=== PATIENT | male | born 1960 | race African-American/Black ===

== ENCOUNTER 2021-07-16 13:21 | Inpatient (IN) | payer BC, SELFPAY ==
[2021-07-16] VITALS (29 sets, daily range): BP systolic 161–234; BP diastolic 75–122; PULSE 40–78; RESP 11–27; TEMP 36.7–37.2; O2SAT 91–100; BMI 28.0
--- NOTE | 2021-07-16 | ECHO_ITS ---
Patient Info Name: Saul Hernandez Age: 61 years : 1960 Gender: Male Ht: 66 in Wt: 162 lbs BSA: 1.86 m2 HR: 69 bpm BP: 161 / 92 mmHg Heart Rhythm: Sinus Rhythm Technical Quality: Fair Exam Date: 07/16/2021 3:39 PM Exam Location: [facility] Patient Status: Emergency Admit Date: 07/16/2021 Staff Ordering Physician: Elham Helton MD Inspector Automatic Typewriter: Rosalind Martínez RDCS Attending Provider: Elham Helton MD Referring Physician: Danie MAYA; Exam Type: CA echo doppler color flow Study Info Indications - elevated troponin, elevated BNP Complete two-dimensional, color flow and Doppler transthoracic echocardiogram is performed. Summary 1. Complete two-dimensional, color flow and Doppler transthoracic echocardiogram is performed. 2. There is severe asymmetric septal increased left ventricular wall thickness. Repeat limited study to evaluate for LVOT obstruction and concern for hypertrophic cardiomyopathy. Consider cardiac MRI if clinically indicated. 3. Mild right ventricular hypertrophy. 4. Left ventricular chamber dimension is normal. 5. Left ventricular systolic function is hyperdynamic, estimated at >70%. 6. The left ventricular diastolic function is grade II diastolic dysfunction. 7. There is mild mitral valve regurgitation. 8. There is trace tricuspid valve regurgitation. 9. Mild pulmonary hypertension, estimated pulmonary arterial systolic pressure is 37 mmHg. Left Ventricle There is severe asymmetric septal increased left ventricular wall thickness. Repeat limited study to evaluate for LVOT obstruction and concern for hypertrophic cardiomyopathy. Consider cardiac MRI if clinically indicated. Left ventricular chamber dimension is normal. Left ventricular systolic function is hyperdynamic, estimated at >70%. The left ventricular diastolic function is grade II diastolic dysfunction. Right Ventricle Mild right ventricular hypertrophy. Right ventricular chamber dimension is normal. Right ventricular systolic function is normal. Left Atria Left atrial chamber dimension is normal. Right Atria Right atrial chamber dimension is mildly enlarged. Aortic Valve The aortic valve is trileaflet. There is no aortic valve stenosis. There is no aortic valve regurgitation. Pulmonic Valve The pulmonic valve is not well visualized. There is trace pulmonic regurgitation. Mitral Valve The mitral valve has normal leaflets. There is mild mitral valve regurgitation. Tricuspid Valve The tricuspid valve leaflets are normal. There is trace tricuspid valve regurgitation. Mild pulmonary hypertension, estimated pulmonary arterial systolic pressure is 37 mmHg. Pericardium/Pleural The pericardium appears normal. There is trivial pericardial effusion. Inferior Vena Cava Normal inferior vena cava with >50% collapse upon inspiration consistent with normal right atrial pressure, 5 mmHg. Aorta The aortic root size at the sinus of Valsalva is normal. Left Ventricular Outflow Tract Name Value Normal LVOT 2D LVOT Diameter 2.0 cm LVOT Doppler LVOT Peak Gradient 8
--- NOTE | ~2021-07-16 | US_ITS ---
EXAMINATION: US renal BI DATE: 07/16/2021 14:26 INDICATION: Hypertensive crisis. TECHNIQUE: Multiple ultrasound grayscale images of the kidneys were obtained. COMPARISON: None. FINDINGS: The right kidney measures 9.0 x 4.3 x 4.6 cm. The left kidney measures 9.2 x 4.4 x 4.3 cm. The kidney s demonstrate normal parenchymal echogenicity. There is no hydronephrosis. The bladder is normal. IMPRESSION: 1. Normal kidneys. No hydronephrosis. Reviewed, dictated and finalized at location A. OR CARE SPECIALIST
--- NOTE | ~2021-07-16 | XR_ITS ---
EXAMINATION: XR chest 2V DATE: 07/16/2021 14:24 INDICATION: Hypertension. TECHNIQUE: Frontal and lateral views of the chest were obtained on 3 radiographs. COMPARISON: None. FINDINGS: There are airspace opacities in the upper lobes, right worse than left. No pleural effusion or pneumothorax. The heart size is normal. IMPRESSION: 1. Airspace opacities in the upper lobes, right worse than left, consistent with pneumonia versus chr onic lung disease. Reviewed, dictated and finalized at location A. F BUSINESS DEVELOPMENT OFFICER IMPRESSION: 1. Airspace opacities in the upper lobes, right worse than left, consistent wit h pneumonia versus chronic lung disease.
--- NOTE | ~2021-07-16 | US_ITS ---
EXAMINATION: US retroperitoneal duplex ltd DATE: 07/24/2021 08:52 INDICATION: hypertension TECHNIQUE: Multiple grayscale, color Doppler, and pulsed Doppler images of the kidneys and renal grisel julio cesar were obtained. COMPARISON: None. FINDINGS: The aorta peak systolic velocity is 139 cm/s. The right renal artery peak systolic velocity is 90 cm/ s in the proximal segment, 136 cm/s in the mid segment, and 96 cm/s in the distal segment. The left r enal artery peak systolic velocity is 62 cm/s in the proximal segment, 70 cm/s in the mid segment, an d 99 cm/s in the distal segment. IMPRESSION: 1. No Doppler evidence of renal artery stenosis. Reviewed, dictated and finalized at location A. CHANGER
--- NOTE | ~2021-07-16 | CT_ITS ---
EXAMINATION: CT brain wo con DATE: 07/16/2021 14:29 INDICATION: Headache, hypertension TECHNIQUE: Computed tomography (CT) of the head was performed without intravenous contrast. The mA wa s adjusted according to patient size. Iterative reconstruction technique was employed. Exam dose: 60 5.33 mGy-cm total exam DLP. COMPARISON: None FINDINGS: Chronic left inferomedial cerebellar hemispheric infarct. There is nonspecific diminished attenuation of the periventricular and subcortical cerebral white mat ter, possibly due to chronic small vessel ischemic changes. No intracranial mass lesion or hemorrhage or cerebrovascular accident is noted. No midline shift or m ass effect. Normal ventricular size. No subdural or epidural hematoma. There is prominent sclerosis at both frontal sinuses which may be developmental or possibly sequela o f chronic infection. This appears benign and likely inactive. If there is clinical concern for any ac tive process at this site, consider radionuclide bone scan. IMPRESSION: Old left cerebellar hemispheric infarct Chronic small vessel ischemic changes of the cerebral white matter Sclerosis at the frontal sinuses, likely benign and chronic Reviewed, dictated and finalized at Location A. Reviewed, dictated and finalized at location B. AT ANALYST
--- NOTE | ~2021-07-16 | XR_ITS ---
EXAMINATION: XR chest 2V DATE: 07/23/2021 13:35 INDICATION: Abnormal chest radiograph TECHNIQUE: PA and lateral views of the chest were obtained. COMPARISON: Chest radiograph dated 07/16/2021 FINDINGS: Persistent pleural parenchymal scarring and coarse primarily reticular opacities at the bilateral upp er lung zones which could represent pneumonia or chronic lung disease. There is been some improvement in prior the lateral perihilar opacities which may represent mild pulmonary edema or pneumonia. Ther e are few scattered small calcified pulmonary nodules consistent with old granulomatous disease. No p leural effusion or pneumothorax. The cardiomediastinal silhouette is normal. Visualized bones and sof t tissues are unremarkable. IMPRESSION: 1. Improvement of prior bilateral perihilar opacities which may represent pulmonary edema or pneumoni a. 2. Pleural-parenchymal scarring with unchanged primarily reticular opacities in the bilateral upper l ta zones which could represent pneumonia or chronic lung disease. Reviewed, dictated and finalized at location A. EDITOR IMPRESSION: 1. Improvement of prior bilateral perihilar opacities which may represent pulmo nary edema or pneumonia. 2. Pleural-parenchymal scarring with unchanged primarily reticular opacities in the bilateral upper lung zones which could represent pneumonia or chronic lung disease.
--- NOTE | 2021-07-16 13:34 | ED.RECABL ---
HPI - Recheck/Abnormal Lab/Rx General Chief Complaint: Recheck/Abnormal Lab/Rx Stated Complaint: high blood pressure Time Seen by Provider: 07/16/21 13:34 Source: patient and family Mode of arrival: ambulatory Limitations: no limitations History of Present Illness HPI narrative: Patient is a 61-year-old male with a history of hypertension, chronic kidney disease, presenting to the emergency department for evaluation of persistently elevated blood pressure. Patient states that he was recently hospitalized at [facility], and left AGAINST MEDICAL ADVICE this morning because his blood pressure has been elevated despite numerous medications he received well being observed there. Patient states that a week ago his blood pressure was elevated at a outpatient nephrology appointment, patient systolics greater than 200s, patient had always been taking his lisinopril 20 mg when his videotape operator ordered him to take amlodipine 10 mg. Because of his very elevated blood pressure, headache, patient was referred to [facility] by his videotape operator. Patient went to [facility] and ultimately was discharged home. Patient has been monitoring his blood pressure for a week when again his systolics were greater than 200, and patient again went to [facility] last night. Patient was given nitroglycerin, hydralazine, amlodipine in the ER, states that it would improve his blood pressure slightly before it would rebound and increase. Patient states he had a slight headache this morning, and he decided to leave AGAINST MEDICAL ADVICE but none of their interventions were working. Patient presents here with mild headache. Denies vision changes, nausea or vomiting. No focal weakness or numbness. His initial blood pressure was check-in was 160/92, bedside systolics 190s to 200s. Patient does not have a salesperson burial needs. Patient states he has an irregular heartbeat. He denies any chest pain. Related Data Home Medications Medication Instructions Recorded Confirmed amlodipine 10 mg PO DAILY 07/16/21 lisinopril 20 mg PO DAILY 07/16/21 Allergies Allergy/AdvReac Type Severity Reaction Status Date / Time No Known Allergies Allergy Verified 07/16/21 13:35 Review of Systems Review of Systems: CONSTITUTIONAL: Denies fever, chills, or sweats. EYES: Denies visual changes, redness, or discharge. ENT: Denies rhinorrhea, congestion, sore throat, or otalgia. CARDIOVASCULAR: Denies chest pain, palpitations, or edema. RESPIRATORY: Denies cough or dyspnea. GASTROINTESTINAL: Denies abdominal pain, nausea, vomiting, or diarrhea. GENITOURINARY: Denies dysuria or hematuria. SKIN: Denies rash or itching. MUSCULOSKELETAL: Denies back pain, joint pain, or myalgia. NEUROLOGIC: Reports mild headache without numbness, or weakness. [facility] Social History Social History (Updated 07/16/21 @ 13:54 by Elham Helton MD) Smoking status: Never smoker Alcohol intake: never Substance use: never Gender identity (if verbalized by the patient): Female Exam Narrative: GENERAL: Awake, alert, conversant HEAD: Normocephalic, atraumatic. EYES: PERRLA and EOMI. ENT: Nares clear, no rhinorrhea or epistaxis. Mucous membranes moist. NECK: Supple. CHEST: No respiratory distress, breathing even and non labored HEART: Irregular rhythm, holosystolic murmur ABDOMEN:Non distended, non tender EXTREMITIES: Normal range of motion. No edema. SKIN: Warm, dry, no rash. NEURO:No focal deficits. Alert and oriented x3. Narrow base, steady gait, normal extremity strength bilateral upper and lower extremities. Course Vital Signs Vital signs: Vital Signs Temperature 37.2 C 07/16/21 13:25 Pulse Rate 40 L 07/16/21 13:25 Respiratory Rate 18 07/16/21 13:25 Blood Pressure 161/92 H 07/16/21 13:25 Pulse Oximetry 100 07/16/21 13:25 Temperature 37.2 C 07/16/21 13:25 Pulse Rate 40 L 07/16/21 13:25 Respiratory Rate 18 07/16/21 13:25 Blood Pressure 161/92 H 07/16/21 1
--- NOTE | 2021-07-16 13:50 | ECG_ITS ---
Measurements Intervals [place] Rate: 70 P: 46 MT: 177 QRS: -24 QRSD: 95 T: 31 QT: 456 QTc: 495 Interpretive Statements SINUS RHYTHM SUPRAVENTRICULAR BIGEMINY INCOMPLETE RIGHT BUNDLE BRANCH BLOCK DELAYED PRECORDIAL R/S TRANSITION BORDERLINE ST ABNORMALITY- INF/LAT LEADS ABNORMAL ECG Electronically Signed On 07-16-2021 15:44:36 SHERIFF'S DETECTIVE by Oswald Leonard D.O.
[2021-07-16] MEDS: NITROGLYCERIN OINTMENT 1 INCH DOSE TRANSDERM (13:57)
[2021-07-16] MEDS: hydrALAZINE HCL 20 MG/ML VIAL IV PUSH ×2 (13:57→15:39)
[2021-07-16 14:06] LABS: Basophils Percent Auto 0.3 % (0.2-1.2); Eosinophils Absolute Auto 0.1 K/mm3 (0-0.3); Eosinophils Percent Auto 0.9 % (0-4.4); Hemoglobin 14.6 g/dL (14.0-18.0); Immature Granulocyte Absolute 0.03 K/mm3 (0.00-0.031); Immature Granulocyte Percent A 0.3 % (0-0.5); Lymphocytes Absolute Auto 1.24 K/mm3 (0.9-3.2); Lymphocytes Percent Auto 11.8 % (18.3-44.2); Mean Corpuscular Hemoglobin 30.7 pg (26-34); Mean Corpuscular Volume 90.3 fl (80-100); Mean Platelet Volume 11.7 fl (7.4-10.4); Monocytes Absolute Auto 0.9 K/mm3 (0.1-0.6); Monocytes Percent Auto 8.5 % (2.6-8.5); Neutrophils Absolute Auto 8.3 K/mm3 (1.3-6.7); Neutrophils Percent Auto 78.2 % (45.5-73.1); Platelet Count Result 282 k/mm3 (150-375); Red Blood Count 4.76 M/mm3 (4.6-6.20); Red Cell Distribution Width 13.5 % (11.5-14.5); White Blood Count 10.5 K/mm3 (4.5-10.0)
[2021-07-16 14:12] LABS: INR 1.1; Prothrombin Time 13.4 Seconds (11.1-14.7)
[2021-07-16 14:13] LABS: Partial Thromboplastin Time 29.2 SECONDS (22.3-36.8)
[2021-07-16 14:20] LABS: Alanine Aminotransferase 13 U/L (4-50); Albumin Level 4.1 g/dL (3.5-5.1); Alkaline Phosphatase 94 U/L (38-126); Anion Gap 9 mmol/L (8-16); Aspartate Amino Transferase 24 U/L (17-59); Bilirubin,Total 1.2 mg/dL (0.2-1.3); Blood Urea Nitrogen 22 mg/dL (9-20); Calcium 9.5 mg/dL (8.4-10.2); Carbon Dioxide 24 mmol/L (22-30); Chloride 109 mmol/L (98-107); Estimated CRCL calculation 37 ml/min; Estimated Glomerular Filt Rate 50; Glucose 99 mg/dL (65-110); Potassium 3.7 mmol/L (3.4-5.0); Sodium 142 mmol/L (137-145)
[2021-07-16 14:29] LABS: NT Pro B Type Natriuretic Pept 2680 pg/mL (5-100)
[2021-07-16 14:40] LABS: Troponin I 0.138 ng/mL (0.000-0.034)
[2021-07-16] MEDS: oxyCODONE/ACETAMINOPHEN (*CRX) 5-325 MG TABLET 1 TABLET PO (15:50)
[2021-07-16 16:13] LABS: SARS-CoV-2 RNA PCR Negative
--- NOTE | 2021-07-16 16:36 | PC.NURSE ---
dinner ordered at this time
[2021-07-16 18:02] LABS: Add Urine Microscopic? YES; Appearance Urine Clear (Clear); Bilirubin Urine Negative (Negative); Blood Urine Negative (Negative); Color Urine Straw (Yellow); Glucose Urine UA Negative (Negative); Ketones Urine Trace mg/dL (Negative); Leukocyte Esterase Ur Negative LEU/UL (Negative); Nitrate Urine Negative (Negative); Protein Urine 2+ mg/dL (Negative); RBC Urine 0-2 /hpf (0-2); Specific Grav Ur 1.015 (1.001-1.035); Urobilinogen Urine Negative mg/dL (<2.0); WBC Urine 0-3 /hpf
--- NOTE | 2021-07-16 18:03 | ADMGEN ---
This patient, Saul Hernandez, was admitted to [facility]. Patient/family oriented to hospital policies and general routines including ID bracelet, bed and alarms, visiting hours, pain management, procedures, bathroom and other care routines, personal items, smoking policy, room service/diet, and visiting hours. Information on how to activate the Rapid Response Team has been discussed. Patient/Family are encouraged to report perceived risks to care and to ask questions if they do not understand what they are told or what they should do.
[2021-07-16 20:13] LABS: Troponin I 0.182 ng/mL (0.000-0.034)
[2021-07-16 22:42] LABS: Troponin I 0.232 ng/mL (0.000-0.034)
[2021-07-17] VITALS (24 sets, daily range): BP systolic 126–229; BP diastolic 59–128; PULSE 46–153; RESP 17–22; TEMP 36.3–36.8; O2SAT 95–99
--- NOTE | 2021-07-17 | ECHO_ITS ---
Patient Info Name: Saul Hernandez Age: 61 years : 1960 Gender: Male Ht: 66 in Wt: 174 lbs BSA: 1.94 m2 HR: 78 bpm BP: 180 / 122 mmHg Heart Rhythm: Sinus Rhythm Technical Quality: Good Exam Date: 07/17/2021 9:08 AM Exam Location: [facility] Exam Room: [facility] Patient Status: Outpatient Admit Date: 07/16/2021 Staff Ordering Physician: Malissa Barney NP Explosive Technician: Misty Fang RDCS Attending Provider: Sheridan Tolbert MD Referring Physician: Ector JUAREZ; Exam Type: CA echo limited w contrast Study Info Indications - EVAL FOR HOCM Limited two-dimensional transthoracic echocardiogram is performed with contrast. Contrast/Agitated Saline Contrast/Ag. Saline: Definity Amount: 2.00 ml Existing IV Access: Yes IV Access Condition: patent with no signs of infiltration Summary 1. Left ventricular chamber dimension is normal. 2. Left ventricular systolic function is hyperdynamic, estimated at >70%. Moderate to severe concentric left ventricular hypertrophy more prominent in the septum. No LVOT obstruction with and without Valsalva. 3. Limited study with limited views with definity echo contrast enhancement. Left Ventricle Left ventricular chamber dimension is normal. Left ventricular systolic function is hyperdynamic, estimated at >70%. Moderate to severe concentric left ventricular hypertrophy more prominent in the septum. No LVOT obstruction with and without Valsalva. Limited study with limited views with definity echo contrast enhancement. Report Signatures
--- NOTE | 2021-07-17 00:20 | PM.IMHP ---
H&P: HPI History of Present Illness Date/Time: 07/16/21 2300 this is a 61-year-old male patient with a past medical history of hypertension and chronic kidney disease. The patient stated that he had only been on lisinopril but then Norvasc was added as well. The patient stated that he was recently admitted to [facility] but then left against medical advice this morning because he felt that his blood pressure was not coming down after multiple medications for tried. Patient also sees Nephrology as well who has been monitoring his renal function. The patient stated for over week his systolic blood pressures have been over 200s. Patient was given nitroglycerin, hydralazine, amlodipine and ER. The patient's blood pressure would only decrease mildly and then rebound an increase again. Patient had no fever chills or nausea vomiting. Patient's blood pressure is down to 179/80. The patient was also given a Percocet. BUN 22 creatinine 1.7. Troponin 0.138, 0.182, and 0.232. Patient was admitted to observation status on the date of service 07/16/2021. Chief Complaint: Elevated blood pressure Review of Systems Review of Systems: All systems reviewed & are unremarkable except as noted in HPI and below Constitutional: Constitutional: Reports as per HPI and Reports no additional constitutional complaints Eyes: Eyes: Reports as per HPI and Reports no additional eye complaints ENT: Reports system reviewed and no additional complaints, except as documented and Reports Normal hearing present Cardiovascular: Cardiovascular: Reports no additional cardiovascular complaints Respiratory: Respiratory: Reports no additional respiratory complaints and Reports no additional respiratory complaints Gastrointestinal: Gastrointestinal: Reports as per HPI and Reports no additional gastrointestinal complaints Musculoskeletal: Musculoskeletal: Reports no additional musculoskeletal complaints Integumentary/Breasts: Skin/Breast: Reports system reviewed and no additional complaints, except as docu and Reports as per HPI Neurologic: Reports system reviewed and no additional complaints, except as documented, Reports as per HPI and Reports Normal hearing present Psychiatric: Psychiatric: Reports no additional psychiatric complaints and Reports as per HPI Endocrine: Endocrine: Reports no additional endocrine complaints Hematologic/Lymphatic: Hematologic/Lymphatic: Reports no additional hematologic/lymphatic complaints Allergic/Immunologic: Allergic/Immunologic: Reports no additional allergic/immunologic complaints [facility] Past Medical History Medical History (Updated 07/17/21 @ 00:46 by Malissa Barney NP) Chronic kidney disease Chronic kidney disease Elevated troponin History of CVA (cerebrovascular accident) As per head CT Malignant hypertension Surgical History Surgical History (Updated 07/17/21 @ 00:42 by Malissa Barney NP) History of appendectomy History of tonsillectomy Family History Family History Mother CHF (congestive heart failure) Hypertension Sibling Diabetes mellitus Hypertension Father Hypertension Social History Social History (Updated 07/17/21 @ 00:43 by Malissa Barney NP) Social History: The patient has a significant other. He had 5 children and 1 in a car accident. The patient is currently unemployed. He is a former smoker. He denies any alcohol but occasionally uses marijuana. He does not have a durable power attorney lawyer for healthcare. Code status full code Smoking packs per day: 0.5 Smoking cigarettes per day: 10.0 Smoking status: Former smoker Tobacco type: cigarettes Smoking end date: 06/01/00 Alcohol intake: current Drinks per week: 8 Substance use: never Substance use type: marijuana Gender identity (if verbalized by the patient): Female Spiritual care concerns: No Meds Home Medications and Allergi
[2021-07-17] MEDS: hydrALAZINE HCL 20 MG/ML VIAL 10 MG IV PUSH (03:07)
[2021-07-17] MEDS: METOPROLOL TARTRATE 25 MG TABLET PO (04:28)
[2021-07-17] MEDS: METOPROLOL TARTRATE INJ 5 MG/5 ML VIAL IV PUSH (04:52)
[2021-07-17] MEDS: amLODIPine BESYLATE 5 MG TABLET 10 MG PO (05:33)
[2021-07-17 06:19] LABS: Basophils Percent Auto 0.1 % (0.2-1.2); Eosinophils Percent Auto 0.2 % (0-4.4); Hematocrit 40.1 % (42.0-52.0); Hemoglobin 13.6 g/dL (14.0-18.0); Immature Granulocyte Absolute 0.07 K/mm3 (0.00-0.031); Immature Granulocyte Percent A 0.5 % (0-0.5); Lymphocytes Absolute Auto 0.58 K/mm3 (0.9-3.2); Lymphocytes Percent Auto 3.8 % (18.3-44.2); Mean Corpuscular HGB Conc 33.9 g/dl (32-36); Mean Corpuscular Hemoglobin 30.2 pg (26-34); Mean Corpuscular Volume 88.9 fl (80-100); Mean Platelet Volume 11.7 fl (7.4-10.4); Monocytes Absolute Auto 0.9 K/mm3 (0.1-0.6); Neutrophils Absolute Auto 13.6 K/mm3 (1.3-6.7); Neutrophils Percent Auto 89.4 % (45.5-73.1); Platelet Count Result 268 k/mm3 (150-375); Red Blood Count 4.51 M/mm3 (4.6-6.20); Red Cell Distribution Width 13.4 % (11.5-14.5); White Blood Count 15.3 K/mm3 (4.5-10.0)
[2021-07-17 06:44] LABS: Alanine Aminotransferase 12 U/L (4-50); Albumin Level 3.8 g/dL (3.5-5.1); Alkaline Phosphatase 82 U/L (38-126); Anion Gap 8 mmol/L (8-16); Aspartate Amino Transferase 23 U/L (17-59); Bilirubin,Total 1.3 mg/dL (0.2-1.3); Blood Urea Nitrogen 25 mg/dL (9-20); Calcium 9.1 mg/dL (8.4-10.2); Carbon Dioxide 24 mmol/L (22-30); Chloride 108 mmol/L (98-107); Estimated CRCL calculation 33 ml/min; Estimated Glomerular Filt Rate 44; Glucose 118 mg/dL (65-110); Lipase 65 U/L (23-300); Magnesium 1.6 mg/dL (1.6-2.3); Potassium 3.7 mmol/L (3.4-5.0); Sodium 140 mmol/L (137-145)
--- NOTE | 2021-07-17 08:08 | PM.CNNEP ---
Assessment and Plan Assessment and plan (1) Hypertension: Code(s): I10 - Essential (primary) hypertension Status: Acute Assessment and Plan: the patient has hypertension. It has been going on for about 40 years. He says it has always been pretty well controlled on just lisinopril and just recently the blood pressures been harder to control. At this point he is on amlodipine which is new for him. Clonidine was given to him for on as needed basis and I do not think he took it much at home. amlodipine was also added by the elevator constructor hydraulic but he never filled this. So basically he has just been on lisinopril. Here the patient has been receiving p.r.n. metoprolol and hydralazine. His amlodipine was started at 10 mg a day and he is also on clonidine 3 times a day, and carvedilol 12.5 b.i.d. which will start this morning. the patient is not on a diuretic. He will need this as does anybody with difficult to control blood pressure. So hydrochlorothiazide has been started. We will see how his blood pressure does. I would like to see the blood pressure come down to around 140 to 160 for a few weeks and then get it down to the 120s as an outpatient. Will check renin and aldosterone and a renal ultrasound to make sure there is nothing else going on to make his blood pressure suddenly harder to control. (2) Chronic kidney disease: Code(s): N18.9 - Chronic kidney disease, unspecified Status: Chronic Assessment and Plan: His creatinine has been elevated in the past he says. He sees a elevator constructor hydraulic in [place]. Most likely the creatinine is elevated because of the blood pressure. Will check some other tests to make sure there is nothing else going on. (3) Elevated troponin: Code(s): R77.8 - Other specified abnormalities of plasma proteins Status: Chronic Assessment and Plan: Troponins are elevated. Possibly due to troponin leak because of the high blood pressure. Consider cardiology consult. (4) Erythropoietin deficiency anemia: Code(s): D63.1 - Anemia in chronic kidney disease Status: Acute Assessment and Plan: Hemoglobin dropped a little bit overnight. Will keep an eye on this. No need for EPO at this point History of Present Illness Reason for Consult Consult date: 07/17/21 Chief Complaint Chief complaint: mlignant hypertension,troponin elevation History of Present Illness Narrative: Mr. lua is a very pleasant 61-year-old gentleman who has multiple medical problems including hypertension, and chronic kidney disease, the patient has had hypertension since he was in his 20s. It does always been pretty well controlled he says until about a week or 2 ago when it was running in the 200s. He was only on lisinopril at the time. He went to the emergency room and they admitted him to [place] but then he left because he did feel like he was getting anywhere. He saw a elevator constructor hydraulic in [place] a couple of days ago who added amlodipine but he never filled it. Last evening the patient had headache in the blood pressure was still over 200 so he came here for further evaluation. He was seen in the emergency room. His blood pressure was over 200. He was given meds. He was admitted to the hospital. He has been given more meds overnight plus as needed medications to bring the blood pressure down. He got his morning meds a little early this morning and now is blood pressure is about 179 on his bedside monitor. has no chest pain. Is a little short of breath at times. He has no swelling. He has a headache when his blood pressure is high. He stopped smoking 20 years ago. He does not drink alcohol. Has not had a major weight gain. He does not take Advil leave ibuprofen or Motrin. Review of Systems Constitutional: Constitutional: Reports no additional constitutional complaints Eyes: Eyes: Reports no additional eye complaints ENT: Reports syst
[2021-07-17] MEDS: ENOXAPARIN 40 MG/0.4 ML SYRINGE SUB-Q (08:11)
[2021-07-17] MEDS: ASPIRIN 81 MG CHEWABLE TABLET PO (08:11)
[2021-07-17] MEDS: traMADol HCL (*CRX) 25 MG TABLET PO (08:58)
[2021-07-17] MEDS: hydroCHLOROthiazide 25 MG TABLET PO ×2 (08:59→22:08)
[2021-07-17] MEDS: ONDANSETRON INJ 4 MG/2 ML VIAL IV PUSH (09:05)
[2021-07-17] MEDS: PERFLUTREN LIPID MICROSPHERES 1.5 ML VIAL DILUTED TO 10 ML TOTAL VOLUME IV PUSH (09:36)
--- NOTE | 2021-07-17 09:37 | IVDEFINITY ---
Prior to administration of IV Definity the patient was educated on the risks and benefits of the imaging enhancing agent including potential adverse side effects. The patient verbalized understanding. Allergies were verified. No exclusion criteria were identified and at least one of the following inclusion criteria were met: 1) physician request, 2) patient technically difficult to image (per the [place] [employer] guidelines of two or more segments not discernable within the apical view), or 3) questionable left ventricular function. ?
--- NOTE | 2021-07-17 10:11 | PM.CNCAR ---
Assessment and Plan Assessment and plan (1) Hypertensive urgency: Code(s): I16.0 - Hypertensive urgency Status: Acute Assessment and Plan: BP poorly controlled at presentation now improved on multiple antihypertensives. Caution to avoid overly aggressive drop in BP. Will keep BP no lower than approximately 150 mm Hg for now with slow reduction over time thereafter. Will need to monitor response to the addition of multiple new medications very closely. Continue lisinopril, carvedilol, hydrochlorothiazide, amlodipine. Ideally, would prefer to avoid clonidine if possible however given the severity of his hypertension and LVH by echocardiogram I suspect his blood pressure has been less well controlled than patient reports. He is not currently in decompensated heart failure. He does not endorse symptoms consistent with myocardial ischemia. There is no outflow tract gradient on echocardiogram to support hypertrophic cardiomyopathy. We discussed this at length given concern and or suspicion for more prominent asymmetric hypertrophy, possible role for cardiac MRI in the future as asymmetric hypertrophy would not be readily explained simply due to uncontrolled hypertension. He verbalized understanding. Further recommendation to follow depending on patient's response to medical therapy. (2) Hypertensive heart disease: Code(s): I11.9 - Hypertensive heart disease without heart failure Status: Acute Assessment and Plan: As above. LVH in large part contribute to longstanding hypertension. Aggressive but appropriate medical therapy for BP control. Counseled on diet, importance of compliance with follow-up and recommendations. Patient verbalized understanding and agreed. (3) Type 2 myocardial infarction: Code(s): I21.A1 - Myocardial infarction type 2 Status: Acute Assessment and Plan: Not secondary to acute coronary syndrome and/or plaque rupture. This is secondary to LV strain related to hypertensive urgency presentation and underlying acute on chronic kidney injury. This is not due to myocardial infarction. (4) PSVT (paroxysmal supraventricular tachycardia): Code(s): I47.1 - Supraventricular tachycardia Status: Acute Assessment and Plan: Self-limited, symptomatic SVT on telemetry. Will continue to monitor. Agree with carvedilol which should reduce recurrence risk. Discussed this at length. Will monitor symptoms. He has no prior known history of arrhythmia. Noted occasional PVCs, atrial bigeminy. 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 No indication for systemic anticoagulation at this time. discussed this at length. If atrial fibrillation and/or atrial flutter noted systemic anticoagulation would be advised given CHADS2 Vasc score of 2. For now aspirin 81 mg daily given evidence of CVA on CT head appropriate. (5) Chronic kidney disease: Code(s): N18.9 - Chronic kidney disease, unspecified Status: Chronic Assessment and Plan: As above, acute on chronic kidney injury baseline stage III secondary to hypertensive heart disease most likely. Monitor response to therapy. Appreciate Nephrology involvement and recommendations. (6) History of CVA (cerebrovascular accident): Code(s): Z86.73 - Personal history of transient ischemic attack (TIA), and cerebral infarction without residual deficits Status: Inactive Assessment and Plan: CT head reveals old stroke. Etiology unclear, however, patient at high risk for recurrence. I would add aspirin 81 mg daily and statin therapy. Check lipid panel. Goal LDL less than 70 given presence of stroke on CT head. History of Present Illness History of Present Illness Consult date/time: Date of service: 07/17/21 10:11 Cardiology consultation at the request of Dr. Hidalgo of the [facility] service for opinion regarding hypertensive urgency and elevated tro
[2021-07-17 10:57] LABS: Complement C3 140 mg/dL (88-165)
[2021-07-17 11:15] LABS: Erythrocyte Sedimentation Rate 38 mm/hr (0-20)
[2021-07-17] MEDS: carvediloL 12.5 MG TABLET PO (12:23)
[2021-07-17 13:18] LABS: Creatinine Urine 333.2 mg/dL
[2021-07-17 14:31] LABS: Total Protein Urine Random 292 mg/dL; Ur Ttl Prot Creatinine Ratio 0.88 mg/mg (0-0.20)
[2021-07-17] MEDS: cloNIDine HCL 0.2 MG TABLET PO (14:48)
--- NOTE | 2021-07-17 15:36 | PM.IMPN ---
Progress Note: A&P Assessment and Plan (1) Malignant hypertension: Code(s): I10 - Essential (primary) hypertension Status: Chronic Assessment and Plan: Going to hold his lisinopril. Continue with amlodipine and clonidine. P.r.n. hydralazine. May also consider a beta-cady. 07/17/2021 Interval history: Patient with extremely elevated blood pressure upon arrival patient systolic blood pressure was over 200 patient states he had been taking lisinopril and recently patient was seen and [facility] started on amlodipine however patient did not start the medication, and does complain frontal had but denies any chest pain, patient tropes are elevated most likely demand ischemia due to extremely elevated blood pressure patient will be seen by internal recruiter and further recommendation to follow, and is seen by Nephrology and added Coreg, metoprolol, clonidine and hydrochlorothiazide, will continue to monitor and further recommendation to follow. (2) Chronic kidney disease: Code(s): N18.9 - Chronic kidney disease, unspecified Status: Chronic Assessment and Plan: I will obtain records from [facility]. I did consult Nephrology for the blood pressure and at the chronic renal failure. Patient had a renal ultrasound which was read as normal kidneys. No hydronephrosis. (3) Elevated troponin: Code(s): R77.8 - Other specified abnormalities of plasma proteins Status: Chronic Assessment and Plan: Could be related to the renal disease. Patient has no complaints of chest pain. Could also possibly be heart strain from uncontrolled hypertension. The patient also has a murmur so I ordered an echo. (4) Headache: Code(s): R51.9 - Headache, unspecified Status: Acute Assessment and Plan: Patient was given a Percocet earlier. Subjective Date/time seen: 07/17/21 15:36 this is a 61-year-old male patient with a past medical history of hypertension and chronic kidney disease. The patient stated that he had only been on lisinopril but then Norvasc was added as well. The patient stated that he was recently admitted to [facility] but then left against medical advice this morning because he felt that his blood pressure was not coming down after multiple medications for tried. Patient also sees Nephrology as well who has been monitoring his renal function. The patient stated for over week his systolic blood pressures have been over 200s. Patient was given nitroglycerin, hydralazine, amlodipine and ER. The patient's blood pressure would only decrease mildly and then rebound an increase again. Patient had no fever chills or nausea vomiting. Patient's blood pressure is down to 179/80. The patient was also given a Percocet. BUN 22 creatinine 1.7. Troponin 0.138, 0.182, and 0.232. Patient was admitted to observation status on the date of service 07/16/2021. Chief Complaint: Elevated blood pressure 07/17/2021 Interval history: Patient with extremely elevated blood pressure upon arrival patient systolic blood pressure was over 200 patient states he had been taking lisinopril and recently patient was seen and [facility] started on amlodipine however patient did not start the medication, and does complain frontal had but denies any chest pain, patient tropes are elevated most likely demand ischemia due to extremely elevated blood pressure patient will be seen by internal recruiter and further recommendation to follow, and is seen by Nephrology and added Coreg, metoprolol, clonidine and hydrochlorothiazide, will continue to monitor and further recommendation to follow. Review of Systems Review of Systems: All systems reviewed & are unremarkable except as noted in HPI and below Exam Narrative: Patient is comfortable, NAD HEENT: eyes are clear and none icteric LUNGS:CTA HEART: RR S1S2 ABD: not distended Lower extremities: no edema SKIN: nonjaundiced Neuro: g
--- NOTE | 2021-07-17 18:50 | PC.NURSE ---
1700-temporarily holding HTCZ due to BP of 120's and HR 40's.
[2021-07-18] VITALS (13 sets, daily range): BP systolic 137–179; BP diastolic 80–97; PULSE 42–58; RESP 15–18; TEMP 36.2–36.6; O2SAT 92–100
[2021-07-18 07:20] LABS: Anion Gap 8 mmol/L (8-16); Blood Urea Nitrogen 32 mg/dL (9-20); Calcium 8.7 mg/dL (8.4-10.2); Carbon Dioxide 27 mmol/L (22-30); Chloride 101 mmol/L (98-107); Cholesterol 163 mg/dL (0-200); Estimated CRCL calculation 27 ml/min; Estimated Glomerular Filt Rate 35; Glucose 93 mg/dL (65-110); HDL Direct 32 mg/dL; Potassium 3.7 mmol/L (3.4-5.0); Sodium 136 mmol/L (137-145); Triglycerides 99 mg/dL (<150)
[2021-07-18 07:21] LABS: LDL Cholesterol Direct 89 mg/dL
[2021-07-18 07:47] LABS: Albumin Level 3.4 g/dL (3.5-5.1); Phosphorus 3.1 mg/dL (2.5-4.5)
--- NOTE | 2021-07-18 09:40 | PM.PNCARD ---
Progress Note: A&P Assessment and Plan (1) Hypertensive urgency: Code(s): I16.0 - Hypertensive urgency Status: Acute Assessment and Plan: BP poorly controlled at presentation now improved on multiple antihypertensives. Caution to avoid overly aggressive drop in BP. Will keep BP no lower than approximately 150 mm Hg for now with slow reduction over time thereafter. Will need to monitor response to the addition of multiple new medications very closely. Due to acute kidney injury lisinopril discontinued. Patient also significant bradycardic likely in combination with carvedilol and clonidine. Clonidine discontinued. I would reduce carvedilol to 3.125 mg b.i.d. particularly if bradycardia persists and up titrate hydralazine as BP requires. Discontinue nitroglycerin paste. Appreciate Nephrology involvement and recommendations. Will observe response to changes already made. Check orthostatics if lightheadedness persists. Ambulate with caution. (2) Bradycardia: Code(s): R00.1 - Bradycardia, unspecified Status: Acute Assessment and Plan: Secondary to clonidine and carvedilol with a occasional ectopic atrial rhythm as above. Changes as noted above. (3) Phfao-ql-vgmlezs kidney injury: Qualifiers: Acute renal failure type: with acute tubular necrosis Chronic kidney disease stage: stage 3 (moderate) Chronic kidney disease stage 3 subtype: unspecified whether 3a or 3b Qualified Code(s): N17.0 - Acute kidney failure with tubular necrosis; N18.30 - Chronic kidney disease, stage 3 unspecified Code(s): N17.9 - Acute kidney failure, unspecified; N18.9 - Chronic kidney disease, unspecified Status: Acute Assessment and Plan: As above, acute on chronic kidney injury baseline stage III secondary to hypertensive heart disease most likely. Monitor response to therapy. Appreciate Nephrology involvement and recommendations. Lisinopril discontinued as above. Remains on hydrochlorothiazide. (4) Type 2 myocardial infarction: Code(s): I21.A1 - Myocardial infarction type 2 Status: Acute Assessment and Plan: Not secondary to acute coronary syndrome and/or plaque rupture. This is secondary to LV strain related to hypertensive urgency presentation and underlying acute on chronic kidney injury. This is not due to myocardial infarction. (5) Hypertensive heart disease: Qualifiers: Heart failure presence: without heart failure Qualified Code(s): I11.9 - Hypertensive heart disease without heart failure Code(s): I11.9 - Hypertensive heart disease without heart failure Status: Acute Assessment and Plan: As above. LVH in large part contribute to longstanding hypertension. Aggressive but appropriate medical therapy for BP control. Counseled on diet, importance of compliance with follow-up and recommendations. Patient verbalized understanding and agreed. (6) PSVT (paroxysmal supraventricular tachycardia): Code(s): I47.1 - Supraventricular tachycardia Status: Acute Assessment and Plan: Self-limited, symptomatic SVT on telemetry. Agree with discontinuation of clonidine due to bradycardia. Will likely need to reduce carvedilol further but monitor for recurrent SVT. Occasional very brief ectopic atrial rhythm but predominant sinus bradycardia on telemetry. (7) History of CVA (cerebrovascular accident): Code(s): Z86.73 - Personal history of transient ischemic attack (TIA), and cerebral infarction without residual deficits Status: Inactive Assessment and Plan: CT head reveals old stroke. Etiology unclear, however, patient at high risk for recurrence. I would add aspirin 81 mg daily and statin therapy. Check lipid panel. Goal LDL less than 70 given presence of stroke on CT head. LDL 89. Add atorvastatin 10 mg at bedtime. Subjective Date/time seen: Date of service: 07/18/21 09:40 Follow-up for hypertensi
[2021-07-18] MEDS: ENOXAPARIN 40 MG/0.4 ML SYRINGE SUB-Q (09:46)
[2021-07-18] MEDS: amLODIPine BESYLATE 5 MG TABLET 10 MG PO (09:47)
[2021-07-18] MEDS: hydrALAZINE 10 MG TABLET PO ×3 (09:49→20:58)
[2021-07-18] MEDS: ASPIRIN 81 MG CHEWABLE TABLET PO (09:49)
[2021-07-18] MEDS: hydroCHLOROthiazide 25 MG TABLET PO ×2 (09:50→17:20)
--- NOTE | 2021-07-18 12:17 | PM.PNNEP ---
Progress Note: A&P Assessment and Plan (1) Hypertension: Code(s): I10 - Essential (primary) hypertension Status: Acute Assessment and Plan: the patient has hypertension. I try to get more clarification might his home blood pressure control. He says that at home he has a wrist cuff. If he felt lightheaded he would check a blood pressure and and the blood pressure generally would run between 120 and 140. However he had not checked his blood pressure in at least a couple of months before it was high 2 weeks ago. Over the last 2 weeks blood pressures have been around 200 as stated in the original H and P he is currently on clonidine carvedilol amlodipine and hydrochlorothiazide. His heart rate dropped overnight to the 50s and 40s and so carvedilol and clonidine were held. I am not a big fan of clonidine in his situation anyway so will DC this. Will add hydralazine and that will help us with its reflex tachycardia. Will continue carvedilol but put parameters for pulse on it. I talked with the nurse about this this morning. Will check renin and aldosterone and a renal ultrasound to make sure there is nothing else going on to make his blood pressure suddenly harder to control. (2) Chronic kidney disease: Code(s): N18.9 - Chronic kidney disease, unspecified Status: Chronic Assessment and Plan: His creatinine has been elevated in the past he says. 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 ultrasound is okay. Otherwise, evaluation for this is pending (3) Elevated troponin: Code(s): R77.8 - Other specified abnormalities of plasma proteins Status: Chronic Assessment and Plan: Troponins are elevated. Possibly due to troponin leak because of the high blood pressure. Consider cardiology consult. (4) Erythropoietin deficiency anemia: Code(s): D63.1 - Anemia in chronic kidney disease Status: Acute Assessment and Plan: Hemoglobin dropped a little bit overnight. Will keep an eye on this. No need for EPO at this point Subjective Date/time seen: 07/18/21 12:17 Interval history: Saul feels better. he is occasionally a bit dizzy. His blood pressure was better overnight. One time he became upset and irrascible on the phone on and his blood pressure shot up to 180 or so but otherwise his pressures been between 130 and 160. No chest pain or shortness of breath Review of Systems Cardiovascular: Cardiovascular: Reports no additional cardiovascular complaints Respiratory: Respiratory: Reports no additional respiratory complaints Gastrointestinal: Gastrointestinal: Reports no additional gastrointestinal complaints Genitourinary: Genitourinary: Reports no additional male genitourinary complaints Exam Narrative: WDWN in NAD skin no rash head ncat lungs clear cor reg no rub abd BS+ nontender and soft ext no edema. Objective Data Vital Signs Vital Signs: Vital Signs - 24 hr 07/17/21 12:23 07/17/21 12:25 07/17/21 14:00 Temperature 36.6 C Pulse Rate 64 72 63 Respiratory Rate 21 H Blood Pressure 174/96 H Pulse Oximetry 96 07/17/21 16:00 07/17/21 16:55 07/17/21 17:42 Temperature 36.3 C L Pulse Rate 49 L 54 L 47 L Respiratory Rate 19 22 H Blood Pressure 129/59 L Pulse Oximetry 98 96 07/17/21 20:00 07/17/21 21:10 07/17/21 22:00 Temperature 36.7 C Pulse Rate 47 L 47 L 46 L Respiratory Rate 18 Blood Pressure 126/68 Pulse Oximetry 99 07/17/21 23:19 07/18/21 00:00 07/18/21 02:00 Temperature 36.6 C Pulse Rate 47 L 42 L Respiratory Rate 18 Blood Pressure 178/106 H 148/88 H Pulse Oximetry 92 07/18/21 04:00 07/18/21 05:08 07/18/21 06:00 Temperature 36.2 C L Pulse Rate 47 L 45 L 43 L Respiratory Rate 16 Blood Pressure 137/97 H Pulse Oximetry 99 07/18/21 08:00 07/18/21 09:22 07/18/21 10:00 Temperature Pulse Rate 58 L 48 L 57 L Respirator
--- NOTE | 2021-07-18 15:47 | PC.NURSE ---
This patient, Saul Hernandez, was transferred to [facility] on 07/18/21 at 1547. Personal belongings sent with patient. Report given to Homa MENDEZ. Appropriate documentation sent with patient.
[2021-07-19] VITALS (11 sets, daily range): BP systolic 147–183; BP diastolic 69–88; PULSE 45–56; RESP 16–18; TEMP 35.9–37.1; O2SAT 96–100
[2021-07-19 05:55] LABS: Albumin Level 3.6 g/dL (3.5-5.1); Anion Gap 9 mmol/L (8-16); Blood Urea Nitrogen 32 mg/dL (9-20); Calcium 8.8 mg/dL (8.4-10.2); Carbon Dioxide 26 mmol/L (22-30); Chloride 101 mmol/L (98-107); Estimated CRCL calculation 31 ml/min; Estimated Glomerular Filt Rate 41; Glucose 167 mg/dL (65-110); Phosphorus 3.2 mg/dL (2.5-4.5); Potassium 3.8 mmol/L (3.4-5.0); Sodium 136 mmol/L (137-145)
[2021-07-19 05:58] LABS: Hematocrit 38.6 % (42.0-52.0); Hemoglobin 13.1 g/dL (14.0-18.0); Mean Corpuscular HGB Conc 33.9 g/dl (32-36); Mean Corpuscular Hemoglobin 30.8 pg (26-34); Mean Corpuscular Volume 90.8 fl (80-100); Mean Platelet Volume 11.8 fl (7.4-10.4); Platelet Count Result 237 k/mm3 (150-375); Red Blood Count 4.25 M/mm3 (4.6-6.20); Red Cell Distribution Width 13.2 % (11.5-14.5); White Blood Count 7.5 K/mm3 (4.5-10.0)
[2021-07-19] MEDS: hydrALAZINE 10 MG TABLET PO ×3 (06:18→22:01)
[2021-07-19] MEDS: ASPIRIN 81 MG CHEWABLE TABLET PO (08:17)
[2021-07-19] MEDS: amLODIPine BESYLATE 5 MG TABLET 10 MG PO (08:17)
[2021-07-19] MEDS: ENOXAPARIN 40 MG/0.4 ML SYRINGE SUB-Q (08:18)
[2021-07-19] MEDS: hydroCHLOROthiazide 25 MG TABLET PO ×2 (08:18→17:18)
--- NOTE | 2021-07-19 11:29 | PM.PNCARD ---
Progress Note: A&P Assessment and Plan (1) Hypertensive urgency: Code(s): I16.0 - Hypertensive urgency Status: Acute Assessment and Plan: BP variable but remains suboptimally controlled. Lisinopril, clonidine, and carvedilol discontinued due to acute renal failure and bradycardia. increase hydralazine to 25 mg q.8 hours. -Check orthostatics if lightheadedness persists. Ambulate with caution. (2) Bradycardia: Code(s): R00.1 - Bradycardia, unspecified Status: Acute Assessment and Plan: Persistent despite discontinuation of clonidine and carvedilol with a occasional ectopic atrial rhythm as above. -Continue telemetry. No high-grade AV block thus far. Expect will improve with washout of Clonidine and Carvedilol, but need to monitor. Patient remains relatively asymptomatic in this regard. - Check 12 lead EKG today. (3) Gghaf-kq-tnksalf kidney injury: Qualifiers: Acute renal failure type: with acute tubular necrosis Chronic kidney disease stage: stage 3 (moderate) Chronic kidney disease stage 3 subtype: unspecified whether 3a or 3b Qualified Code(s): N17.0 - Acute kidney failure with tubular necrosis; N18.30 - Chronic kidney disease, stage 3 unspecified Code(s): N17.9 - Acute kidney failure, unspecified; N18.9 - Chronic kidney disease, unspecified Status: Acute Assessment and Plan: As above, acute on chronic kidney injury baseline stage III secondary to hypertensive heart disease most likely. Creatinine slightly improved today. Monitor response to therapy. Appreciate Nephrology involvement and recommendations. Remains on hydrochlorothiazide. (4) Type 2 myocardial infarction: Code(s): I21.A1 - Myocardial infarction type 2 Status: Acute Assessment and Plan: Not secondary to acute coronary syndrome and/or plaque rupture. This is secondary to LV strain related to hypertensive urgency presentation and underlying acute on chronic kidney injury. This is not due to myocardial infarction. (5) Hypertensive heart disease: Qualifiers: Heart failure presence: without heart failure Qualified Code(s): I11.9 - Hypertensive heart disease without heart failure Code(s): I11.9 - Hypertensive heart disease without heart failure Status: Acute Assessment and Plan: As above. LVH in large part contribute to longstanding hypertension. Aggressive but appropriate medical therapy for BP control. Counseled on diet, importance of compliance with follow-up and recommendations. Patient verbalized understanding and agreed. (6) PSVT (paroxysmal supraventricular tachycardia): Code(s): I47.1 - Supraventricular tachycardia Status: Acute Assessment and Plan: No recurrence of late. Self-limited, symptomatic SVT on telemetry. Agree with discontinuation of clonidine due to bradycardia. Will likely need to reduce carvedilol further but monitor for recurrent SVT. Occasional very brief ectopic atrial rhythm but predominant sinus bradycardia on telemetry. (7) History of CVA (cerebrovascular accident): Code(s): Z86.73 - Personal history of transient ischemic attack (TIA), and cerebral infarction without residual deficits Status: Inactive Assessment and Plan: CT head reveals old stroke. Etiology unclear, however, patient at high risk for recurrence. Continue spirin 81 mg daily. Goal LDL less than 70 given presence of stroke on CT head. LDL 89. Add Atorvastatin 10 mg at bedtime. Subjective Date/time seen: Date of service: 07/19/21 11:29 Follow-up for hypertensive urgency, bradycardia patient feels okay. Denies chest pain, palpitations, shortness of breath. Mild lightheadedness initially when he stands up but then resolves fairly quickly without recurrence. No near-syncope or syncope. Remains bradycardic on telemetry heart rate 40s to 50s occasional ectopic beats but no high grade block or pr
--- NOTE | 2021-07-19 12:52 | PM.PNNEP ---
Progress Note: A&P Assessment and Plan (1) Hypertension: Code(s): I10 - Essential (primary) hypertension Status: Acute Assessment and Plan: the patient has hypertension. the patient's blood pressure is gradually better. Lately it has been between 140 and 180. His heart rate is still in the 40s in spite of being off clonidine and carvedilol. The clonidine should be gone but the carvedilol may take a little while longer because of his kidney disease. He is on hydrochlorothiazide, amlodipine, and hydralazine. Will increase the latter to 25 Q8 (2) Chronic kidney disease: Code(s): N18.9 - Chronic kidney disease, unspecified Status: Chronic Assessment and Plan: His creatinine has been elevated in the past he says. 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 urine protein is 880. ultrasound is okay Most likely this is chronic kidney disease from hypertension. (3) Elevated troponin: Code(s): R77.8 - Other specified abnormalities of plasma proteins Status: Chronic Assessment and Plan: Troponins are elevated. Possibly due to troponin leak because of the high blood pressure. Consider cardiology consult. (4) Erythropoietin deficiency anemia: Code(s): D63.1 - Anemia in chronic kidney disease Status: Acute Assessment and Plan: Hemoglobin Is still in the 13 stop. Subjective Date/time seen: 07/19/21 12:52 Interval history: Saul feels better. No more dizziness. He is sitting at the side of the bed eating lunch. Exam Narrative: WDWN in NAD skin no rash head ncat lungs clear bilaterally cor reg no rub abd BS+ nontender and soft ext no edema or cyanosis. Objective Data Vital Signs Vital Signs: Vital Signs - 24 hr 07/18/21 16:00 07/18/21 20:00 07/18/21 20:05 Temperature 36.4 C 36.6 C Pulse Rate 53 L 50 L 50 L Respiratory Rate 16 15 Blood Pressure 150/80 H 179/92 H Pulse Oximetry 100 99 07/18/21 20:55 07/19/21 00:00 07/19/21 04:00 Temperature 36.4 C Pulse Rate 49 L 50 L 55 L Respiratory Rate 16 Blood Pressure 158/69 H Pulse Oximetry 98 07/19/21 04:49 07/19/21 06:18 07/19/21 08:00 Temperature 36.4 C Pulse Rate 48 L Respiratory Rate 16 Blood Pressure 183/85 H 180/88 H Pulse Oximetry 96 100 Intake/Output Intake/Output: Intake & Output 07/16/21 07/17/21 07/18/21 07/19/21 23:59 23:59 23:59 23:59 Intake Total 610 1400 720 Output Total 688 310 1521 Balance 60 1000 -1280 Meds/Results Medications: Active Medications Generic Name Dose Route Start Last Admin Trade Name Freq PRN Reason Stop Dose Admin Acetaminophen 650 mg 07/16/21 15:35 Acetaminophen 325 Mg Tablet PO Q4H PRN Mild Pain (1-3) or Fever Amlodipine Besylate 10 mg 07/17/21 09:00 07/19/21 08:17 Amlodipine Besylate 5 Mg Tablet PO 10 mg DAILY JAY Administration Aspirin 81 mg 07/17/21 08:00 07/19/21 08:17 Aspirin 81 Mg Chewable Tablet PO 81 mg DAILY@0800 JAY Administration Atorvastatin Calcium 10 mg 07/20/21 09:00 Atorvastatin 10 Mg Tablet PO DAILY JAY Enoxaparin Sodium 40 mg 07/17/21 09:00 07/19/21 08:18 Enoxaparin 40 Mg/0.4 Ml Syringe SUB-Q 40 mg DAILY JAY Administration Hydralazine HCl 10 mg 07/17/21 00:39 07/17/21 03:07 Hydralazine Hcl 20 Mg/Ml Vial IV PUSH 10 mg Q8H PRN Administration Blood Pressure - High Hydralazine HCl 10 mg 07/18/21 09:00 07/19/21 06:18 Hydralazine 10 Mg Tablet PO 10 mg Q8HR JAY Administration Hydrochlorothiazide 25 mg 07/17/21 09:00 07/19/21 08:18 Hydrochlorothiazide 25 Mg Tablet PO 25 mg BID JAY Administration Ondansetron HCl 4 mg 07/16/21 15:35 07/17/21 09:05 Ondansetron Inj 4 Mg/2 Ml Vial IV PUSH 4 mg Q4H PRN Administration Nausea Tramadol HCl 25 mg 07/17/21 00:50 07/17/21 08:58 Tramadol Hcl (*Crx) 25 Mg Tablet PO 25 mg Q4H PRN Adminis
--- NOTE | 2021-07-19 14:09 | PM.IMPN ---
Progress Note: A&P Assessment and Plan (1) Malignant hypertension: Code(s): I10 - Essential (primary) hypertension Status: Chronic Assessment and Plan: Going to hold his lisinopril. Continue with amlodipine and clonidine. P.r.n. hydralazine. May also consider a beta-cady. 07/17/2021 Interval history: Patient with extremely elevated blood pressure upon arrival patient systolic blood pressure was over 200 patient states he had been taking lisinopril and recently patient was seen and [facility] started on amlodipine however patient did not start the medication, and does complain frontal had but denies any chest pain, patient tropes are elevated most likely demand ischemia due to extremely elevated blood pressure patient will be seen by machine precision etcher and further recommendation to follow, and is seen by Nephrology and added Coreg, metoprolol, clonidine and hydrochlorothiazide, will continue to monitor and further recommendation to follow. 07/18/2021 Interval history: Patient with extremely elevated blood pressure upon arrival patient systolic blood pressure was over 200 patient states he had been taking lisinopril and recently patient was seen and [facility] started on amlodipine however patient did not start the medication, and did complain frontal had but denies any chest pain, patient tropes were elevated most likely demand ischemia due to extremely elevated blood pressure patient was seen by machine precision etcher and further recommendation to follow, and is seen by Nephrology and added Coreg, metoprolol, clonidine and hydrochlorothiazide, today patient VELAZQUEZ is better, will continue to monitor and further recommendation to follow. (2) Chronic kidney disease: Code(s): N18.9 - Chronic kidney disease, unspecified Status: Chronic Assessment and Plan: I will obtain records from [facility]. I did consult Nephrology for the blood pressure and at the chronic renal failure. Patient had a renal ultrasound which was read as normal kidneys. No hydronephrosis. (3) Elevated troponin: Code(s): R77.8 - Other specified abnormalities of plasma proteins Status: Chronic Assessment and Plan: Could be related to the renal disease. Patient has no complaints of chest pain. Could also possibly be heart strain from uncontrolled hypertension. The patient also has a murmur so I ordered an echo. (4) Headache: Code(s): R51.9 - Headache, unspecified Status: Acute Assessment and Plan: Patient was given a Percocet earlier. Subjective Date/time seen: 07/18/21 07/17/2021 Interval history: Patient with extremely elevated blood pressure upon arrival patient systolic blood pressure was over 200 patient states he had been taking lisinopril and recently patient was seen and [facility] started on amlodipine however patient did not start the medication, and does complain frontal had but denies any chest pain, patient tropes are elevated most likely demand ischemia due to extremely elevated blood pressure patient will be seen by machine precision etcher and further recommendation to follow, and is seen by Nephrology and added Coreg, metoprolol, clonidine and hydrochlorothiazide, will continue to monitor and further recommendation to follow. 07/18/2021 Interval history: Patient with extremely elevated blood pressure upon arrival patient systolic blood pressure was over 200 patient states he had been taking lisinopril and recently patient was seen and [facility] started on amlodipine however patient did not start the medication, and did complain frontal had but denies any chest pain, patient tropes were elevated most likely demand ischemia due to extremely elevated blood pressure patient was seen by machine precision etcher and further recommendation to follow, and is seen by Nephrology and added Coreg, metoprolol, clonidine and hydrochlorothiazide, today patient VELAZQUEZ is better, will jayashree
--- NOTE | 2021-07-19 14:20 | PM.IMPN ---
Progress Note: A&P Assessment and Plan (1) Malignant hypertension: Code(s): I10 - Essential (primary) hypertension Status: Chronic Assessment and Plan: Going to hold his lisinopril. Continue with amlodipine and clonidine. P.r.n. hydralazine. May also consider a beta-cady. 07/17/2021 Interval history: Patient with extremely elevated blood pressure upon arrival patient systolic blood pressure was over 200 patient states he had been taking lisinopril and recently patient was seen and [facility] started on amlodipine however patient did not start the medication, and does complain frontal had but denies any chest pain, patient tropes are elevated most likely demand ischemia due to extremely elevated blood pressure patient will be seen by recooperer and further recommendation to follow, and is seen by Nephrology and added Coreg, metoprolol, clonidine and hydrochlorothiazide, will continue to monitor and further recommendation to follow. 07/18/2021 Interval history: Patient with extremely elevated blood pressure upon arrival patient systolic blood pressure was over 200 patient states he had been taking lisinopril and recently patient was seen and [facility] started on amlodipine however patient did not start the medication, and did complain frontal had but denies any chest pain, patient tropes were elevated most likely demand ischemia due to extremely elevated blood pressure patient was seen by recooperer and further recommendation to follow, and is seen by Nephrology and added Coreg, metoprolol, clonidine and hydrochlorothiazide, today patient VELAZQUEZ is better, will continue to monitor and further recommendation to follow. 07/19/2021 Interval history: Patient with extremely elevated blood pressure upon arrival patient systolic blood pressure was over 200 patient states he had been taking lisinopril and recently patient was seen and [facility] started on amlodipine however patient did not start the medication, and did complain frontal had but denies any chest pain, patient tropes were elevated most likely demand ischemia due to extremely elevated blood pressure patient was seen by recooperer and further recommendation to follow, and is seen by Nephrology and added Coreg, metoprolol, clonidine and hydrochlorothiazide, today discussed with Dr. Kilgore nephrology plan is to monitor patient blood patient is trending down however his heart rate is Jonas will continue to monitor, today patient VELAZQUEZ is better, will continue to monitor and further recommendation to follow. (2) Chronic kidney disease: Code(s): N18.9 - Chronic kidney disease, unspecified Status: Chronic Assessment and Plan: I will obtain records from [facility]. I did consult Nephrology for the blood pressure and at the chronic renal failure. Patient had a renal ultrasound which was read as normal kidneys. No hydronephrosis. (3) Elevated troponin: Code(s): R77.8 - Other specified abnormalities of plasma proteins Status: Chronic Assessment and Plan: Could be related to the renal disease. Patient has no complaints of chest pain. Could also possibly be heart strain from uncontrolled hypertension. The patient also has a murmur so I ordered an echo. (4) Headache: Code(s): R51.9 - Headache, unspecified Status: Acute Assessment and Plan: Patient was given a Percocet earlier. Subjective Date/time seen: 07/19/21 14:20 07/17/2021 Interval history: Patient with extremely elevated blood pressure upon arrival patient systolic blood pressure was over 200 patient states he had been taking lisinopril and recently patient was seen and [facility] started on amlodipine however patient did not start the medication, and does complain frontal had but denies any chest pain, patient tropes are elevated most likely demand ischemia due to extremely elevated blood pressure pat
[2021-07-19 19:48] LABS: Complement Total CH50 >60 U/mL (31-60)
[2021-07-20] VITALS (9 sets, daily range): BP systolic 146–184; BP diastolic 80–99; PULSE 45–69; RESP 16–18; TEMP 36.1–36.6; O2SAT 99–100
[2021-07-20 05:08] LABS: Kappa\\Lambda Light Chains 1.46 (0.26-1.65); Lambda Light Chain 25.5 mg/L (5.7-26.3)
[2021-07-20] MEDS: hydrALAZINE 10 MG TABLET PO (05:54)
[2021-07-20 06:17] LABS: Albumin Level 3.8 g/dL (3.5-5.1); Anion Gap 7 mmol/L (8-16); Blood Urea Nitrogen 31 mg/dL (9-20); Carbon Dioxide 29 mmol/L (22-30); Chloride 103 mmol/L (98-107); Estimated CRCL calculation 33 ml/min; Estimated Glomerular Filt Rate 44; Glucose 75 mg/dL (65-110); Phosphorus 3.4 mg/dL (2.5-4.5); Potassium 3.8 mmol/L (3.4-5.0); Sodium 139 mmol/L (137-145)
[2021-07-20] MEDS: ATORVASTATIN 10 MG TABLET PO ×2 (08:36→11:38)
[2021-07-20] MEDS: amLODIPine BESYLATE 5 MG TABLET 10 MG PO (08:36)
[2021-07-20] MEDS: hydroCHLOROthiazide 25 MG TABLET PO ×2 (08:36→16:54)
[2021-07-20] MEDS: ENOXAPARIN 40 MG/0.4 ML SYRINGE SUB-Q (08:36)
[2021-07-20] MEDS: ASPIRIN 81 MG CHEWABLE TABLET PO (08:36)
--- NOTE | 2021-07-20 08:55 | PM.PNCARD ---
Progress Note: A&P Assessment and Plan (1) Hypertensive urgency: Code(s): I16.0 - Hypertensive urgency Status: Acute Assessment and Plan: BP variable but remains suboptimally controlled. Lisinopril, clonidine, and carvedilol discontinued due to acute renal failure and bradycardia. Will continue current regimen without change. (2) Bradycardia: Code(s): R00.1 - Bradycardia, unspecified Status: Acute Assessment and Plan: No clear symptoms related to bradycardia. Avoid AV/SA jeremie agents (3) Ejzcx-ou-xwtzest kidney injury: Qualifiers: Acute renal failure type: with acute tubular necrosis Chronic kidney disease stage: stage 3 (moderate) Chronic kidney disease stage 3 subtype: unspecified whether 3a or 3b Qualified Code(s): N17.0 - Acute kidney failure with tubular necrosis; N18.30 - Chronic kidney disease, stage 3 unspecified Code(s): N17.9 - Acute kidney failure, unspecified; N18.9 - Chronic kidney disease, unspecified Status: Acute Assessment and Plan: Improving renal function. Followed by Nephrology. (4) Type 2 myocardial infarction: Code(s): I21.A1 - Myocardial infarction type 2 Status: Acute Assessment and Plan: Not secondary to acute coronary syndrome and/or plaque rupture. This is secondary to LV strain related to hypertensive urgency presentation and underlying acute on chronic kidney injury. This is not due to myocardial infarction. (5) Hypertensive heart disease: Qualifiers: Heart failure presence: without heart failure Qualified Code(s): I11.9 - Hypertensive heart disease without heart failure Code(s): I11.9 - Hypertensive heart disease without heart failure Status: Acute Assessment and Plan: As above. LVH in large part contribute to longstanding hypertension. Aggressive but appropriate medical therapy for BP control. Counseled on diet, importance of compliance with follow-up and recommendations. Patient verbalized understanding and agreed. (6) PSVT (paroxysmal supraventricular tachycardia): Code(s): I47.1 - Supraventricular tachycardia Status: Acute Assessment and Plan: No recurrence of late. Self-limited, symptomatic SVT on telemetry. (7) History of CVA (cerebrovascular accident): Code(s): Z86.73 - Personal history of transient ischemic attack (TIA), and cerebral infarction without residual deficits Status: Inactive Assessment and Plan: CT head reveals old stroke. Etiology unclear, however, patient at high risk for recurrence. Continue spirin 81 mg daily. Goal LDL less than 70 given presence of stroke on CT head. LDL 89. Will increase atorvastatin 20 mg p.o. daily Subjective Date/time seen: 07/20/21 08:55 Interval history: 61-year-old admitted with hypertensive emergency. Date of service 07/20/2021: Feels okay. No chest pain or shortness breath blood pressure still while the fluctuating Review of Systems Review of Systems: All systems reviewed & are unremarkable except as noted in HPI and below Constitutional: Constitutional: Reports as per HPI, Reports no additional constitutional complaints, Reports fatigue and Reports headache(s) Eyes: Eyes: Reports as per HPI and Reports no additional eye complaints ENT: Reports system reviewed and no additional complaints, except as documented, Reports as per HPI and Reports headache(s) Cardiovascular: Cardiovascular: Reports as per HPI, Reports no additional cardiovascular complaints, Denies chest pain, Denies lightheadedness, Denies palpitations, Reports dyspnea and Denies dyspnea on exertion Respiratory: Respiratory: Reports as per HPI, Reports no additional respiratory complaints, Reports dyspnea and Denies dyspnea on exertion Gastrointestinal: Gastrointestinal: Reports as per HPI and Reports no additional gastrointestinal complaints Genitourinary: Genitourinary: Reports no additional male genit
--- NOTE | 2021-07-20 09:56 | PM.PNNEP ---
Progress Note: A&P Assessment and Plan (1) Hypertension: Code(s): I10 - Essential (primary) hypertension Status: Acute Assessment and Plan: the patient has hypertension. the patient's blood pressure is gradually better. Lately it has been between 140 and 180. His heart rate is still in the 40s and 50s in spite of being off clonidine and carvedilol. He is on hydrochlorothiazide, amlodipine, and hydralazine. Will increase the latter today to 25 Q8 (2) Chronic kidney disease: Code(s): N18.9 - Chronic kidney disease, unspecified Status: Chronic Assessment and Plan: His creatinine has been elevated in the past he says. He sees a rn first assistant in [place]. urine protein is 880. ultrasound is okay Most likely this is chronic kidney disease from hypertension. (3) Elevated troponin: Code(s): R77.8 - Other specified abnormalities of plasma proteins Status: Chronic Assessment and Plan: Troponins are elevated. Possibly due to troponin leak because of the high blood pressure. cardiology seeing (4) Erythropoietin deficiency anemia: Code(s): D63.1 - Anemia in chronic kidney disease Status: Acute Assessment and Plan: Hemoglobin is doing well. Subjective Date/time seen: 07/20/21 09:56 Interval history: Saul feels Okay. Eating okay. No shortness of breath chest pain or dizziness Exam Narrative: WDWN in NAD skin no rash or subcu nodules head ncat lungs clear bilaterally cor reg no rub or gallop abd BS+ nontender and soft ext no edema or cyanosis. Objective Data Vital Signs Vital Signs: Vital Signs - 24 hr 07/19/21 12:00 07/19/21 15:28 07/19/21 16:00 Temperature 36.7 C Pulse Rate 56 L 53 L Respiratory Rate 16 Blood Pressure 160/78 H Pulse Oximetry 100 100 07/19/21 19:36 07/19/21 20:00 07/19/21 23:35 Temperature 35.9 C L 37.1 C Pulse Rate 47 L 49 L 52 L Respiratory Rate 18 18 Blood Pressure 147/73 H 180/80 H Pulse Oximetry 100 99 07/20/21 00:00 07/20/21 03:56 07/20/21 04:00 Temperature 36.1 C L Pulse Rate 69 47 L 45 L Respiratory Rate 18 Blood Pressure 157/95 H Pulse Oximetry 100 07/20/21 08:00 Temperature 36.6 C Pulse Rate 57 L Respiratory Rate 16 Blood Pressure 184/99 H Pulse Oximetry 99 Intake/Output Intake/Output: Intake & Output 07/17/21 07/18/21 07/19/21 07/20/21 23:59 23:59 23:59 23:59 Intake Total 610 1400 2080 460 Output Total 260 165 3314 900 Balance 60 1000 -970 -440 Meds/Results Medications: Active Medications Generic Name Dose Route Start Last Admin Trade Name Freq PRN Reason Stop Dose Admin Acetaminophen 650 mg 07/16/21 15:35 Acetaminophen 325 Mg Tablet PO Q4H PRN Mild Pain (1-3) or Fever Amlodipine Besylate 10 mg 07/17/21 09:00 07/20/21 08:36 Amlodipine Besylate 5 Mg Tablet PO 10 mg DAILY JAY Administration Aspirin 81 mg 07/17/21 08:00 07/20/21 08:36 Aspirin 81 Mg Chewable Tablet PO 81 mg DAILY@0800 [facility] Administration Atorvastatin Calcium 20 mg 07/21/21 09:00 Atorvastatin 20 Mg Tablet PO DAILY [facility] Enoxaparin Sodium 40 mg 07/17/21 09:00 07/20/21 08:36 Enoxaparin 40 Mg/0.4 Ml Syringe SUB-Q 40 mg DAILY [facility] Administration Hydralazine HCl 25 mg 07/19/21 12:56 Hydralazine Hcl 20 Mg/Ml Vial IV PUSH Q8H PRN Blood Pressure - High Hydralazine HCl 25 mg 07/20/21 14:00 Hydralazine Hcl 25 Mg Tablet PO Q8HR [facility] Hydrochlorothiazide 25 mg 07/17/21 09:00 07/20/21 08:36 Hydrochlorothiazide 25 Mg Tablet PO 25 mg BID JAY Administration Ondansetron HCl 4 mg 07/16/21 15:35 07/17/21 09:05 Ondansetron Inj 4 Mg/2 Ml Vial IV PUSH 4 mg Q4H PRN Administration Nausea Tramadol HCl 25 mg 07/17/21 00:50 07/17/21 08:58 Tramadol Hcl (*Crx) 25 Mg Tablet PO 25 mg Q4H PRN Administration Pain Rated 4-6 Radio
[2021-07-20] MEDS: DOCUSATE SODIUM 100 MG CAPSULE PO (11:37)
[2021-07-20] MEDS: polyethylene glycoL 3350 17 GM POWD.PACK PO (11:37)
--- NOTE | 2021-07-20 12:30 | PM.IMPN ---
Progress Note: A&P Assessment and Plan (1) Malignant hypertension: Code(s): I10 - Essential (primary) hypertension Status: Chronic Assessment and Plan: Going to hold his lisinopril. Continue with amlodipine and clonidine. P.r.n. hydralazine. May also consider a beta-cady. 07/17/2021 Interval history: Patient with extremely elevated blood pressure upon arrival patient systolic blood pressure was over 200 patient states he had been taking lisinopril and recently patient was seen and [facility] started on amlodipine however patient did not start the medication, and does complain frontal had but denies any chest pain, patient tropes are elevated most likely demand ischemia due to extremely elevated blood pressure patient will be seen by timber framer and further recommendation to follow, and is seen by Nephrology and added Coreg, metoprolol, clonidine and hydrochlorothiazide, will continue to monitor and further recommendation to follow. 07/18/2021 Interval history: Patient with extremely elevated blood pressure upon arrival patient systolic blood pressure was over 200 patient states he had been taking lisinopril and recently patient was seen and [facility] started on amlodipine however patient did not start the medication, and did complain frontal had but denies any chest pain, patient tropes were elevated most likely demand ischemia due to extremely elevated blood pressure patient was seen by timber framer and further recommendation to follow, and is seen by Nephrology and added Coreg, metoprolol, clonidine and hydrochlorothiazide, today patient VELAZQUEZ is better, will continue to monitor and further recommendation to follow. 07/19/2021 Interval history: Patient with extremely elevated blood pressure upon arrival patient systolic blood pressure was over 200 patient states he had been taking lisinopril and recently patient was seen and [facility] started on amlodipine however patient did not start the medication, and did complain frontal had but denies any chest pain, patient tropes were elevated most likely demand ischemia due to extremely elevated blood pressure patient was seen by timber framer and further recommendation to follow, and is seen by Nephrology and added Coreg, metoprolol, clonidine and hydrochlorothiazide, today discussed with Dr. Kilgore nephrology plan is to monitor patient blood patient is trending down however his heart rate is Jonas will continue to monitor, today patient VELAZQUEZ is better, will continue to monitor and further recommendation to follow. 07/20/2021 Interval history: Patient with extremely elevated blood pressure upon arrival patient systolic blood pressure was over 200 patient states he had been taking lisinopril and recently patient was seen and [facility] started on amlodipine however patient did not start the medication, and did complain frontal had but denies any chest pain, patient tropes were elevated most likely demand ischemia due to extremely elevated blood pressure patient was seen by timber framer and further recommendation to follow, and is seen by Nephrology and added Coreg, metoprolol, clonidine and hydrochlorothiazide, on 07/[address] Kilgore nephrology plan is to monitor patient blood pressure and it is trending down however his heart rate is Jonas especially in am metoprolol and Coreg are not stopped, will continue to monitor, today patient VELAZQUEZ is better, will continue to monitor and further recommendation to follow. (2) Chronic kidney disease: Code(s): N18.9 - Chronic kidney disease, unspecified Status: Chronic Assessment and Plan: I will obtain records from [facility]. I did consult Nephrology for the blood pressure and at the chronic renal failure. Patient had a renal ultrasound which was read as normal kidneys. No hydronephrosis. (3) Elevated troponin: Code(s): R77.8 - Other specified abn
[2021-07-20] MEDS: hydrALAZINE HCL 25 MG TABLET PO ×2 (16:54→21:34)
[2021-07-21] VITALS (11 sets, daily range): BP systolic 157–183; BP diastolic 72–94; PULSE 45–73; RESP 16–20; TEMP 36.3–37.1; O2SAT 98–100
[2021-07-21 05:56] LABS: Hematocrit 40.9 % (42.0-52.0); Hemoglobin 13.9 g/dL (14.0-18.0); Mean Corpuscular Hemoglobin 30.2 pg (26-34); Mean Corpuscular Volume 88.9 fl (80-100); Mean Platelet Volume 11.4 fl (7.4-10.4); Platelet Count Result 253 k/mm3 (150-375); Red Cell Distribution Width 12.9 % (11.5-14.5); White Blood Count 7.5 K/mm3 (4.5-10.0)
[2021-07-21] MEDS: hydrALAZINE HCL 25 MG TABLET PO ×3 (05:56→21:00)
[2021-07-21 06:09] LABS: Anion Gap 5 mmol/L (8-16); Blood Urea Nitrogen 29 mg/dL (9-20); Calcium 9.1 mg/dL (8.4-10.2); Carbon Dioxide 28 mmol/L (22-30); Chloride 101 mmol/L (98-107); Estimated CRCL calculation 35 ml/min; Estimated Glomerular Filt Rate 47; Glucose 97 mg/dL (65-110); Phosphorus 3.4 mg/dL (2.5-4.5); Sodium 134 mmol/L (137-145)
--- NOTE | 2021-07-21 08:02 | PM.PNNEP ---
Progress Note: A&P Assessment and Plan (1) Hypertension: Code(s): I10 - Essential (primary) hypertension Status: Acute Assessment and Plan: the patient has hypertension. the patient's blood pressure is about the same. A is between 140 and 180. His heart rate is still in the 40s and 50s in spite of being off clonidine and carvedilol. He is on hydrochlorothiazide, amlodipine, and hydralazine. Will add lisinopril. He was on this before and tolerated it well. I will cut back on the amlodipine in case that is contributing to his heart rate. He just increased the hydralazine yesterday will give this another day. (2) Chronic kidney disease: Code(s): N18.9 - Chronic kidney disease, unspecified Status: Chronic Assessment and Plan: His creatinine has been elevated in the past he says. He sees a senior business consultant in [place]. urine protein is 880. ultrasound is okay Urinalysis is bland Most likely this is chronic kidney disease from hypertension. (3) Elevated troponin: Code(s): R77.8 - Other specified abnormalities of plasma proteins Status: Chronic Assessment and Plan: Troponins are elevated. Possibly due to troponin leak because of the high blood pressure. cardiology seeing (4) Erythropoietin deficiency anemia: Code(s): D63.1 - Anemia in chronic kidney disease Status: Acute Assessment and Plan: Hemoglobin is doing well. Subjective Date/time seen: 07/21/21 08:02 Interval history: Patient feels about the same. Eating okay. Occasional headaches. Exam Narrative: WDWN in NAD skin no rash or subcu nodules head ncat lungs clear cor reg no rub or gallop abd BS+ nontender ext no edema Objective Data Vital Signs Vital Signs: Vital Signs - 24 hr 07/20/21 12:00 07/20/21 16:00 07/20/21 16:05 Temperature 36.6 C Pulse Rate 54 L 52 L 54 L Respiratory Rate 16 Blood Pressure 175/80 H Pulse Oximetry 100 07/20/21 19:36 07/20/21 20:00 07/21/21 00:00 Temperature 36.6 C Pulse Rate 49 L 51 L 46 L Respiratory Rate 16 Blood Pressure 146/80 H Pulse Oximetry 99 07/21/21 04:00 07/21/21 04:02 Temperature 37.1 C Pulse Rate 47 L 45 L Respiratory Rate 16 Blood Pressure 178/81 H Pulse Oximetry 98 Intake/Output Intake/Output: Intake & Output 07/18/21 07/19/21 07/20/21 07/21/21 23:59 23:59 23:59 23:59 Intake Total 1400 2080 1440 440 Output Total 400 3050 1800 700 Balance 4775 -97 -360 -463 Meds/Results Medications: Active Medications Generic Name Dose Route Start Last Admin Trade Name Freq PRN Reason Stop Dose Admin Acetaminophen 650 mg 07/16/21 15:35 Acetaminophen 325 Mg Tablet PO Q4H PRN Mild Pain (1-3) or Fever Amlodipine Besylate 5 mg 07/21/21 09:00 Amlodipine Besylate 5 Mg Tablet PO DAILY [facility] Aspirin 81 mg 07/17/21 08:00 07/20/21 08:36 Aspirin 81 Mg Chewable Tablet PO 81 mg DAILY@0800 JAY Administration Atorvastatin Calcium 20 mg 07/21/21 09:00 Atorvastatin 20 Mg Tablet PO DAILY [facility] Docusate Sodium 100 mg 07/20/21 11:16 07/20/21 11:37 Docusate Sodium 100 Mg Capsule PO 100 mg Q12H PRN Administration Constipation Enoxaparin Sodium 40 mg 07/17/21 09:00 07/20/21 08:36 Enoxaparin 40 Mg/0.4 Ml Syringe SUB-Q 40 mg DAILY JAY Administration Hydralazine HCl 25 mg 07/19/21 12:56 Hydralazine Hcl 20 Mg/Ml Vial IV PUSH Q8H PRN Blood Pressure - High Hydralazine HCl 25 mg 07/20/21 14:00 07/21/21 05:56 Hydralazine Hcl 25 Mg Tablet PO 25 mg Q8HR JAY Administration Hydrochlorothiazide 25 mg 07/17/21 09:00 07/20/21 16:54 Hydrochlorothiazide 25 Mg Tablet PO 25 mg BID [facility] Administration Lisinopril 10 mg 07/21/21 09:00 Lisinopril 10 Mg Tablet PO DAILY [facility] Ondansetron HCl 4 mg 07/16/21 15:35 07/17/21 09:05 Ondansetron Inj 4 Mg/2 Ml Vial IV PUSH
[2021-07-21] MEDS: ATORVASTATIN 20 MG TABLET PO (08:51)
[2021-07-21] MEDS: ENOXAPARIN 40 MG/0.4 ML SYRINGE SUB-Q (08:51)
[2021-07-21] MEDS: ASPIRIN 81 MG CHEWABLE TABLET PO (08:52)
[2021-07-21] MEDS: amLODIPine BESYLATE 5 MG TABLET PO (08:52)
[2021-07-21] MEDS: hydroCHLOROthiazide 25 MG TABLET PO ×2 (08:52→16:38)
[2021-07-21] MEDS: lisinopriL 10 MG TABLET PO (08:55)
[2021-07-21] MEDS: polyethylene glycoL 3350 17 GM POWD.PACK PO (09:16)
--- NOTE | 2021-07-21 09:42 | PM.PNCARD ---
Progress Note: A&P Assessment and Plan (1) Hypertensive urgency: Code(s): I16.0 - Hypertensive urgency Status: Acute Assessment and Plan: BP variable but remains suboptimally controlled. Lisinopril restarted today by Nephrology. Also on hydrochlorothiazide, amlodipine and hydralazine. (2) Bradycardia: Code(s): R00.1 - Bradycardia, unspecified Status: Acute Assessment and Plan: No clear symptoms related to bradycardia. Avoid AV/SA jeremie agents (3) [id number] kidney injury: Qualifiers: Acute renal failure type: with acute tubular necrosis Chronic kidney disease stage: stage 3 (moderate) Chronic kidney disease stage 3 subtype: unspecified whether 3a or 3b Qualified Code(s): N17.0 - Acute kidney failure with tubular necrosis; N18.30 - Chronic kidney disease, stage 3 unspecified Code(s): N17.9 - Acute kidney failure, unspecified; N18.9 - Chronic kidney disease, unspecified Status: Acute Assessment and Plan: Improving renal function. Followed by Nephrology. (4) Type 2 myocardial infarction: Code(s): I21.A1 - Myocardial infarction type 2 Status: Acute Assessment and Plan: Not secondary to acute coronary syndrome and/or plaque rupture. This is secondary to LV strain related to hypertensive urgency presentation and underlying acute on chronic kidney injury. This is not due to myocardial infarction. (5) Hypertensive heart disease: Qualifiers: Heart failure presence: without heart failure Qualified Code(s): I11.9 - Hypertensive heart disease without heart failure Code(s): I11.9 - Hypertensive heart disease without heart failure Status: Acute Assessment and Plan: As above. LVH in large part contribute to longstanding hypertension. Aggressive but appropriate medical therapy for BP control. Counseled on diet, importance of compliance with follow-up and recommendations. Patient verbalized understanding and agreed. (6) PSVT (paroxysmal supraventricular tachycardia): Code(s): I47.1 - Supraventricular tachycardia Status: Acute Assessment and Plan: No recurrence of late. Self-limited, symptomatic SVT on telemetry. (7) History of CVA (cerebrovascular accident): Code(s): Z86.73 - Personal history of transient ischemic attack (TIA), and cerebral infarction without residual deficits Status: Inactive Assessment and Plan: CT head reveals old stroke. Etiology unclear, however, patient at high risk for recurrence. Continue spirin 81 mg daily. Goal LDL less than 70 given presence of stroke on CT head. LDL 89. Continue statin Subjective Date/time seen: 07/21/21 09:42 Interval history: 61-year-old admitted with hypertensive emergency. Date of service 07/21/2021: Has a headache. No chest pain, shortness of breath. Review of Systems Review of Systems: All systems reviewed & are unremarkable except as noted in HPI and below Constitutional: Constitutional: Reports as per HPI, Reports no additional constitutional complaints, Reports fatigue and Reports headache(s) Eyes: Eyes: Reports as per HPI and Reports no additional eye complaints ENT: Reports system reviewed and no additional complaints, except as documented, Reports as per HPI and Reports headache(s) Cardiovascular: Cardiovascular: Reports as per HPI, Reports no additional cardiovascular complaints, Denies chest pain, Denies lightheadedness, Denies palpitations, Reports dyspnea and Denies dyspnea on exertion Respiratory: Respiratory: Reports as per HPI, Reports no additional respiratory complaints, Reports dyspnea and Denies dyspnea on exertion Gastrointestinal: Gastrointestinal: Reports as per HPI and Reports no additional gastrointestinal complaints Genitourinary: Genitourinary: Reports no additional male genitourinary complaints and Reports as per HPI Musculoskeletal: Musculoskeletal: Reports no additional muscu
--- NOTE | 2021-07-21 11:28 | PM.IMPN ---
Progress Note: A&P Assessment and Plan (1) Malignant hypertension: Code(s): I10 - Essential (primary) hypertension Status: Chronic Assessment and Plan: Going to hold his lisinopril. Continue with amlodipine and clonidine. P.r.n. hydralazine. May also consider a beta-cady. 07/17/2021 Interval history: Patient with extremely elevated blood pressure upon arrival patient systolic blood pressure was over 200 patient states he had been taking lisinopril and recently patient was seen and [facility] started on amlodipine however patient did not start the medication, and does complain frontal had but denies any chest pain, patient tropes are elevated most likely demand ischemia due to extremely elevated blood pressure patient will be seen by print shop manager and further recommendation to follow, and is seen by Nephrology and added Coreg, metoprolol, clonidine and hydrochlorothiazide, will continue to monitor and further recommendation to follow. 07/18/2021 Interval history: Patient with extremely elevated blood pressure upon arrival patient systolic blood pressure was over 200 patient states he had been taking lisinopril and recently patient was seen and [facility] started on amlodipine however patient did not start the medication, and did complain frontal had but denies any chest pain, patient tropes were elevated most likely demand ischemia due to extremely elevated blood pressure patient was seen by print shop manager and further recommendation to follow, and is seen by Nephrology and added Coreg, metoprolol, clonidine and hydrochlorothiazide, today patient VELAZQUEZ is better, will continue to monitor and further recommendation to follow. 07/19/2021 Interval history: Patient with extremely elevated blood pressure upon arrival patient systolic blood pressure was over 200 patient states he had been taking lisinopril and recently patient was seen and [facility] started on amlodipine however patient did not start the medication, and did complain frontal had but denies any chest pain, patient tropes were elevated most likely demand ischemia due to extremely elevated blood pressure patient was seen by print shop manager and further recommendation to follow, and is seen by Nephrology and added Coreg, metoprolol, clonidine and hydrochlorothiazide, today discussed with Dr. Kilgore nephrology plan is to monitor patient blood patient is trending down however his heart rate is Jonas will continue to monitor, today patient VELAZQUEZ is better, will continue to monitor and further recommendation to follow. 07/20/2021 Interval history: Patient with extremely elevated blood pressure upon arrival patient systolic blood pressure was over 200 patient states he had been taking lisinopril and recently patient was seen and [facility] started on amlodipine however patient did not start the medication, and did complain frontal had but denies any chest pain, patient tropes were elevated most likely demand ischemia due to extremely elevated blood pressure patient was seen by print shop manager and further recommendation to follow, and is seen by Nephrology and added Coreg, metoprolol, clonidine and hydrochlorothiazide, on 07/[address] Kilgore nephrology plan is to monitor patient blood pressure and it is trending down however his heart rate is Jonas especially in am metoprolol and Coreg are not stopped, will continue to monitor, today patient VELAZQUEZ is better, will continue to monitor and further recommendation to follow. 07/21/2021 Interval history: Patient with extremely elevated blood pressure upon arrival patient systolic blood pressure was over 200 patient states he had been taking lisinopril and recently patient was seen and [facility] started on amlodipine however patient did not start the medication, and did complain frontal had but denies any chest pain, patient tropes were elevated most likely demand ischemia due to
[2021-07-22] VITALS (11 sets, daily range): BP systolic 155–184; BP diastolic 62–100; PULSE 52–62; RESP 17–20; TEMP 36–37.1; O2SAT 98–100
[2021-07-22] MEDS: hydrALAZINE HCL 25 MG TABLET PO ×3 (05:09→20:59)
[2021-07-22 06:19] LABS: Anion Gap 6 mmol/L (8-16); Blood Urea Nitrogen 29 mg/dL (9-20); Calcium 9.3 mg/dL (8.4-10.2); Carbon Dioxide 29 mmol/L (22-30); Chloride 101 mmol/L (98-107); Estimated CRCL calculation 33 ml/min; Estimated Glomerular Filt Rate 44; Glucose 91 mg/dL (65-110); Phosphorus 3.6 mg/dL (2.5-4.5); Potassium 4.6 mmol/L (3.4-5.0); Sodium 136 mmol/L (137-145)
[2021-07-22] MEDS: ASPIRIN 81 MG CHEWABLE TABLET PO (08:53)
[2021-07-22] MEDS: ATORVASTATIN 20 MG TABLET PO (08:53)
[2021-07-22] MEDS: hydroCHLOROthiazide 25 MG TABLET PO ×2 (08:53→16:53)
[2021-07-22] MEDS: amLODIPine BESYLATE 5 MG TABLET PO (08:53)
[2021-07-22] MEDS: ENOXAPARIN 40 MG/0.4 ML SYRINGE SUB-Q (08:54)
[2021-07-22] MEDS: lisinopriL 10 MG TABLET PO (08:54)
--- NOTE | 2021-07-22 12:02 | PM.IMPN ---
Progress Note: A&P Assessment and Plan (1) Malignant hypertension: Code(s): I10 - Essential (primary) hypertension Status: Chronic Assessment and Plan: Going to hold his lisinopril. Continue with amlodipine and clonidine. P.r.n. hydralazine. May also consider a beta-cady. 07/17/2021 Interval history: Patient with extremely elevated blood pressure upon arrival patient systolic blood pressure was over 200 patient states he had been taking lisinopril and recently patient was seen and [facility] started on amlodipine however patient did not start the medication, and does complain frontal had but denies any chest pain, patient tropes are elevated most likely demand ischemia due to extremely elevated blood pressure patient will be seen by tankage grinder and further recommendation to follow, and is seen by Nephrology and added Coreg, metoprolol, clonidine and hydrochlorothiazide, will continue to monitor and further recommendation to follow. 07/18/2021 Interval history: Patient with extremely elevated blood pressure upon arrival patient systolic blood pressure was over 200 patient states he had been taking lisinopril and recently patient was seen and [facility] started on amlodipine however patient did not start the medication, and did complain frontal had but denies any chest pain, patient tropes were elevated most likely demand ischemia due to extremely elevated blood pressure patient was seen by tankage grinder and further recommendation to follow, and is seen by Nephrology and added Coreg, metoprolol, clonidine and hydrochlorothiazide, today patient VELAZQUEZ is better, will continue to monitor and further recommendation to follow. 07/19/2021 Interval history: Patient with extremely elevated blood pressure upon arrival patient systolic blood pressure was over 200 patient states he had been taking lisinopril and recently patient was seen and [facility] started on amlodipine however patient did not start the medication, and did complain frontal had but denies any chest pain, patient tropes were elevated most likely demand ischemia due to extremely elevated blood pressure patient was seen by tankage grinder and further recommendation to follow, and is seen by Nephrology and added Coreg, metoprolol, clonidine and hydrochlorothiazide, today discussed with Dr. Kilgore nephrology plan is to monitor patient blood patient is trending down however his heart rate is Jonas will continue to monitor, today patient VELAZQUEZ is better, will continue to monitor and further recommendation to follow. 07/20/2021 Interval history: Patient with extremely elevated blood pressure upon arrival patient systolic blood pressure was over 200 patient states he had been taking lisinopril and recently patient was seen and [facility] started on amlodipine however patient did not start the medication, and did complain frontal had but denies any chest pain, patient tropes were elevated most likely demand ischemia due to extremely elevated blood pressure patient was seen by tankage grinder and further recommendation to follow, and is seen by Nephrology and added Coreg, metoprolol, clonidine and hydrochlorothiazide, on 07/[address] Kilgore nephrology plan is to monitor patient blood pressure and it is trending down however his heart rate is Jonas especially in am metoprolol and Coreg are not stopped, will continue to monitor, today patient VELAZQUEZ is better, will continue to monitor and further recommendation to follow. 07/21/2021 Interval history: Patient with extremely elevated blood pressure upon arrival patient systolic blood pressure was over 200 patient states he had been taking lisinopril and recently patient was seen and [facility] started on amlodipine however patient did not start the medication, and did complain frontal had but denies any chest pain, patient tropes were elevated most likely demand ischemia due to
--- NOTE | 2021-07-22 15:27 | P.PNNP_ITS ---
Progress Note: A&P Assessment and Plan (1) Hypertension: Code(s): I10 - Essential (primary) hypertension Status: Acute Assessment and Plan: * long standing issues and apparent poor control at baseline * systolic BP has been running ~ 140 - 180 * currently on hydrochlorothiazide, amlodipine, hydralazine and recent addition of lisinopril * follow trend of hemodynamics * may have to accept that optimal BP control will require ongoing outpatient management (2) Chronic kidney disease: Code(s): N18.9 - Chronic kidney disease, unspecified Status: Chronic Assessment and Plan: * unclear what his baseline creatinine/GRF is but likely secondary to HTN * suspect runs ~ 1.7 - 1.9mg/dl * follows with outpatient nephrology at [place] * evaluation to date: * proteinuria ~ 900mg * normal renal ultrasound * bland urinalysis * follow trend of creatinine * follow-up with primary regulatory auditor on discharge (3) Bradycardia: Code(s): R00.1 - Bradycardia, unspecified Status: Acute Assessment and Plan: * heart rate better since clonidine and carvedilol discontinued * Cardiology following Will continue to follow Subjective Date/time seen: 07/22/21 15:27 Chart reviewed - assuming care from Dr. Kilgore; no apparent issues or complaints voiced at this time; BP remains erratic but better controlled in comparison to admission; no events overnight or earlier this AM. Exam Narrative: General: WD/WN AA male in NAD Heart: normal S1 and S2; no rub Lungs: clear to auscultation Abdomen: soft, nontender, nondistended, positive bowel sounds Extremities: no cyanosis or clubbing; no edema Skin: warm and dry Objective Data Vital Signs Vital Signs: Vital Signs Temp Pulse Resp BP Pulse Ox 07/22/21 14:51 166/90 H 07/22/21 12:00 62 07/22/21 08:59 57 L 07/22/21 08:45 36.0 C L 57 L 18 181/79 H 98 07/22/21 04:00 52 L 07/22/21 03:44 37.1 C 59 L 17 172/100 H 99 07/22/21 00:00 57 L 07/21/21 20:00 49 L 07/21/21 19:36 36.3 C L 51 L 18 157/93 H 98 Intake/Output Intake/Output: Intake & Output 07/19/21 07/20/21 07/21/21 07/22/21 23:59 23:59 23:59 23:59 Intake Total 2080 1440 1870 1202 Output Total 3050 1800 1500 700 Balance -970 -360 370 502 Meds/Results Medications: Active Medications Generic Name Dose Route Start Last Admin Trade Name Freq PRN Reason Stop Dose Admin Acetaminophen 650 mg 07/16/21 15:35 Acetaminophen 325 Mg Tablet PO Q4H PRN Mild Pain (1-3) or Fever Amlodipine Besylate 5 mg 07/21/21 09:00 07/22/21 08:53 Amlodipine Besylate 5 Mg Tablet PO 5 mg DAILY JAY Administration Aspirin 81 mg 07/17/21 08:00 07/22/21 08:53 Aspirin 81 Mg Chewable Tablet PO 81 mg DAILY@0800 JAY Administration Atorvastatin Calcium 20 mg 07/21/21 09:00 07/22/21 08:53 Atorvastatin 20 Mg Tablet PO 20 mg DAILY JAY Administration Docusate Sodium 100 mg 07/20/21 11:16 07/20/21 11:37 Docusate Sodium 100 Mg Capsule PO 100 mg Q12H PRN Administration Constipation Enoxaparin Sodium 40
--- NOTE | 2021-07-22 15:27 | PM.PNNEP ---
Progress Note: A&P Assessment and Plan (1) Hypertension: Code(s): I10 - Essential (primary) hypertension Status: Acute Assessment and Plan: long standing issues and apparent poor control at baseline systolic BP has been running ~ 140 - 180 currently on hydrochlorothiazide, amlodipine, hydralazine and recent addition of lisinopril follow trend of hemodynamics may have to accept that optimal BP control will require ongoing outpatient management (2) Chronic kidney disease: Code(s): N18.9 - Chronic kidney disease, unspecified Status: Chronic Assessment and Plan: unclear what his baseline creatinine/GRF is but likely secondary to HTN suspect runs ~ 1.7 - 1.9mg/dl follows with outpatient nephrology at [facility] evaluation to date: proteinuria ~ 900mg normal renal ultrasound bland urinalysis follow trend of creatinine follow-up with primary accountant helper on discharge (3) Bradycardia: Code(s): R00.1 - Bradycardia, unspecified Status: Acute Assessment and Plan: heart rate better since clonidine and carvedilol discontinued Cardiology following Will continue to follow Subjective Date/time seen: 07/22/21 15:27 Chart reviewed - assuming care from Dr. Kilgore; no apparent issues or complaints voiced at this time; BP remains erratic but better controlled in comparison to admission; no events overnight or earlier this AM. Exam Narrative: General: WD/WN AA male in NAD Heart: normal S1 and S2; no rub Lungs: clear to auscultation Abdomen: soft, nontender, nondistended, positive bowel sounds Extremities: no cyanosis or clubbing; no edema Skin: warm and dry Objective Data Vital Signs Vital Signs: Vital Signs Temp Pulse Resp BP Pulse Ox 07/22/21 14:51 166/90 H 07/22/21 12:00 62 07/22/21 08:59 57 L 07/22/21 08:45 36.0 C L 57 L 18 181/79 H 98 07/22/21 04:00 52 L 07/22/21 03:44 37.1 C 59 L 17 172/100 H 99 07/22/21 00:00 57 L 07/21/21 20:00 49 L 07/21/21 19:36 36.3 C L 51 L 18 157/93 H 98 Intake/Output Intake/Output: Intake & Output 07/19/21 07/20/21 07/21/2107/22/22 23:59 23:59 23:59 23:59 Intake Total 2080 1440 1870 1202 Output Total 3050 1800 1500 700 Balance -970 -360 370 502 Meds/Results Medications: Active Medications Generic Name Dose Route Start Last Admin Trade Name Freq PRN Reason Stop Dose Admin Acetaminophen 650 mg 07/16/21 15:35 Acetaminophen 325 Mg Tablet PO Q4H PRN Mild Pain (1-3) or Fever Amlodipine Besylate 5 mg 07/21/21 09:00 07/22/21 08:53 Amlodipine Besylate 5 Mg Tablet PO 5 mg DAILY JAY Administration Aspirin 81 mg 07/17/21 08:00 07/22/21 08:53 Aspirin 81 Mg Chewable Tablet PO 81 mg DAILY@0800 JAY Administration Atorvastatin Calcium 20 mg 07/21/21 09:00 07/22/21 08:53 Atorvastatin 20 Mg Tablet PO 20 mg DAILY JAY Administration Docusate Sodium 100 mg 07/20/21 11:16 07/20/21 11:37 Docusate Sodium 100 Mg Capsule PO 100 mg Q12H PRN Administration Constipation Enoxaparin Sodium 40 mg 07/17/21 09:00 07/22/21 08:54 Enoxaparin 40 Mg/0.4 Ml Syringe SUB-Q 40 mg DAILY JAY Administration Hydralazine HCl 25 mg 07/19/21 12:56 Hydralazine Hcl 20 Mg/Ml Vial IV PUSH Q8H PRN Blood Pressure - High Hydralazine HCl 25 mg 07/20/21 14:00 07/22/21 14:50 Hydralazine Hcl 25 Mg Tablet PO 25 mg Q8HR JAY Administration Hydrochlorothiazide 25 mg 07/17/21 09:00 07/22/21 16:53 Hydrochlorothiazide 25 Mg Tablet PO 25 mg BID JAY Administration Lisinopril 10 mg 07/21/21 09:00 07/22/21 08:54 Lisinopril 10 Mg Tablet PO 10 mg DAILY JAY Administration Ondansetron HCl 4 mg 07/16/21 15:35 07/17/21 09:05 Ondansetron Inj 4 Mg/2 Ml Vial IV PUSH 4 mg Q4H PRN Administration Nausea Polyethylene Glycol 17 gm 07/20/21 11:16 07/21/21 09:16 P
[2021-07-22] MEDS: hydrALAZINE HCL 20 MG/ML VIAL 25 MG IV PUSH (23:55)
[2021-07-23] VITALS (12 sets, daily range): BP systolic 145–178; BP diastolic 86–96; PULSE 56–76; RESP 18–20; TEMP 36.3–36.4; O2SAT 94–100
[2021-07-23] MEDS: hydrALAZINE HCL 25 MG TABLET 50 MG PO ×3 (05:53→21:04)
--- NOTE | 2021-07-23 05:54 | PC.NURSE ---
0552 ENTERED PT ROOM TO GIVE MORNING MEDS PT STATED NUCLEAR MEDICINE TECHNICIAN HAD GIVEN HIM MEDS ALREADY. I INFORMED HIM I WAS THE ONLY ONE WHO WAS ABLE TO GIVE HIM MEDS AND THE NUCLEAR MEDICINE TECHNICIAN HAD NOT BEEN IN HIS ROOM OTHER THAN TO TAKE HIS VITALS AND BRING HIM WATER. PT HAS BEEN SUSPICIOUS AND ANGRY THROUGHOUT NIGHT. PT ALLOWED ME TO GIVE MORNING MEDS WILL ASSESS FOR FURTHER CONFUSION.
[2021-07-23 07:48] LABS: Albumin Level 4.1 g/dL (3.5-5.1); Anion Gap 7 mmol/L (8-16); Blood Urea Nitrogen 30 mg/dL (9-20); Calcium 9.4 mg/dL (8.4-10.2); Carbon Dioxide 26 mmol/L (22-30); Chloride 103 mmol/L (98-107); Estimated CRCL calculation 35 ml/min; Estimated Glomerular Filt Rate 47; Glucose 95 mg/dL (65-110); Phosphorus 3.1 mg/dL (2.5-4.5); Potassium 4.3 mmol/L (3.4-5.0); Sodium 136 mmol/L (137-145)
[2021-07-23] MEDS: ENOXAPARIN 40 MG/0.4 ML SYRINGE SUB-Q (08:25)
[2021-07-23] MEDS: hydroCHLOROthiazide 25 MG TABLET PO ×2 (08:25→17:00)
[2021-07-23] MEDS: ATORVASTATIN 20 MG TABLET PO (08:25)
[2021-07-23] MEDS: amLODIPine BESYLATE 5 MG TABLET PO (08:25)
[2021-07-23] MEDS: ASPIRIN 81 MG CHEWABLE TABLET PO (08:25)
[2021-07-23] MEDS: lisinopriL 10 MG TABLET PO (08:25)
--- NOTE | 2021-07-23 10:15 | P.PNNP_ITS ---
Progress Note: A&P Assessment and Plan (1) Hypertension: Code(s): I10 - Essential (primary) hypertension Status: Acute Assessment and Plan: * long standing issues and apparent poor control at baseline * systolic BP has been running ~ 140 - 180 * elevated in AM but trends down over the course of the day * currently on hydrochlorothiazide, amlodipine, hydralazine and recent addition of lisinopril * follow trend of hemodynamics * may have to accept that optimal BP control will require ongoing outpatient management (2) Chronic kidney disease: Code(s): N18.9 - Chronic kidney disease, unspecified Status: Chronic Assessment and Plan: * unclear what his baseline creatinine/GRF is but likely secondary to HTN * suspect runs ~ 1.7 - 1.9mg/dl * follows with outpatient nephrology at [place] * evaluation to date: * proteinuria ~ 900mg * normal renal ultrasound * bland urinalysis * follow trend of creatinine * follow-up with primary accounts receivable associate on discharge (3) Bradycardia: Code(s): R00.1 - Bradycardia, unspecified Status: Acute Assessment and Plan: * heart rate better since clonidine and carvedilol discontinued * amlodipine was also reduced given concern that this maybe playing a role * Cardiology following Not opposed to discharge from renal perspective if otherwise medically stable - he can follow-up with his primary accounts receivable associate for CKD management and ongoing management of his hypertension. Will continue to follow Subjective Date/time seen: 07/23/21 10:15 No apparent distress voiced at the time of my visit; no complaints of chest pain or shortness of breath; no issues/events overnight or earlier this AM. Exam Narrative: General: WD/WN AA male in NAD Heart: normal S1 and S2; no rub Lungs: clear to auscultation Abdomen: soft, nontender, nondistended, positive bowel sounds Extremities: no cyanosis or clubbing; no edema Skin: warm and intact Objective Data Vital Signs Vital Signs: Vital Signs Temp Pulse Resp BP Pulse Ox 07/23/21 08:00 72 07/23/21 04:44 36.4 C L 60 20 178/89 H 100 07/23/21 04:00 64 07/23/21 01:42 94 07/23/21 00:00 58 L 07/22/21 23:58 36.5 C 54 L 20 184/90 H 100 07/22/21 20:00 56 L 20 100 07/22/21 19:59 36.2 C L 53 L 20 155/96 H 100 07/22/21 16:00 36.2 C L 59 L 18 158/62 H 99 07/22/21 14:51 166/90 H 07/22/21 12:00 62 Intake/Output Intake/Output: Intake & Output 07/20/21 07/21/21 07/22/21 07/23/21 23:59 23:59 23:59 23:59 Intake Total 1440 1870 2202 390 Output Total 1800 1500 1600 600 Balance -360 370 602 -210 Meds/Results Medications: Active Medications Generic Name Dose Route Start Last Admin Trade Name Freq PRN Reason Stop Dose Admin Acetaminophen 650 mg 07/16/21 15:35 Acetaminophen 325 Mg Tablet PO Q4H PRN Mild Pain (1-3) or Fever Amlodipine Besylate 5 mg 07/21/21 09:00 07/23/21 08:25 Amlodipine Besylate 5 Mg Tablet PO 5 mg DAILY [facility] Administration Aspirin 81 mg 07/17/21 08:00 07/23/21 08:25 Aspirin 81 Mg Chewable Tablet PO 81 mg DAILY@0800 [facility] Administration
--- NOTE | 2021-07-23 10:15 | PM.PNNEP ---
Progress Note: A&P Assessment and Plan (1) Hypertension: Code(s): I10 - Essential (primary) hypertension Status: Acute Assessment and Plan: long standing issues and apparent poor control at baseline systolic BP has been running ~ 140 - 180 elevated in AM but trends down over the course of the day currently on hydrochlorothiazide, amlodipine, hydralazine and recent addition of lisinopril follow trend of hemodynamics may have to accept that optimal BP control will require ongoing outpatient management (2) Chronic kidney disease: Code(s): N18.9 - Chronic kidney disease, unspecified Status: Chronic Assessment and Plan: unclear what his baseline creatinine/GRF is but likely secondary to HTN suspect runs ~ 1.7 - 1.9mg/dl follows with outpatient nephrology at [place] evaluation to date: proteinuria ~ 900mg normal renal ultrasound bland urinalysis follow trend of creatinine follow-up with primary dairy equipment repairer on discharge (3) Bradycardia: Code(s): R00.1 - Bradycardia, unspecified Status: Acute Assessment and Plan: heart rate better since clonidine and carvedilol discontinued amlodipine was also reduced given concern that this maybe playing a role Cardiology following Not opposed to discharge from renal perspective if otherwise medically stable - he can follow-up with his primary dairy equipment repairer for CKD management and ongoing management of his hypertension. Will continue to follow Subjective Date/time seen: 07/23/21 10:15 No apparent distress voiced at the time of my visit; no complaints of chest pain or shortness of breath; no issues/events overnight or earlier this AM. Exam Narrative: General: WD/WN AA male in NAD Heart: normal S1 and S2; no rub Lungs: clear to auscultation Abdomen: soft, nontender, nondistended, positive bowel sounds Extremities: no cyanosis or clubbing; no edema Skin: warm and intact Objective Data Vital Signs Vital Signs: Vital Signs Temp Pulse Resp BP Pulse Ox 07/23/21 08:00 72 07/23/21 04:44 36.4 C L 60 20 178/89 H 100 07/23/21 04:00 64 07/23/21 01:42 94 07/23/21 00:00 58 L 07/22/21 23:58 36.5 C 54 L 20 184/90 H 100 07/22/21 20:00 56 L 20 100 07/22/21 19:59 36.2 C L 53 L 20 155/96 H 100 07/22/21 16:00 36.2 C L 59 L 18 158/62 H 99 07/22/21 14:51 166/90 H 07/22/21 12:00 62 Intake/Output Intake/Output: Intake & Output 07/20/21 07/21/21 07/22/21 07/23/21 23:59 23:59 23:59 23:59 Intake Total 1440 1870 2202 390 Output Total 1800 1500 1600 600 Balance -360 370 602 -210 Meds/Results Medications: Active Medications Generic Name Dose Route Start Last Admin Trade Name Freq PRN Reason Stop Dose Admin Acetaminophen 650 mg 07/16/21 15:35 Acetaminophen 325 Mg Tablet PO Q4H PRN Mild Pain (1-3) or Fever Amlodipine Besylate 5 mg 07/21/21 09:00 07/23/21 08:25 Amlodipine Besylate 5 Mg Tablet PO 5 mg DAILY JAY Administration Aspirin 81 mg 07/17/21 08:00 07/23/21 08:25 Aspirin 81 Mg Chewable Tablet PO 81 mg DAILY@0800 JAY Administration Atorvastatin Calcium 20 mg 07/21/21 09:00 07/23/21 08:25 Atorvastatin 20 Mg Tablet PO 20 mg DAILY JAY Administration Docusate Sodium 100 mg 07/20/21 11:16 07/20/21 11:37 Docusate Sodium 100 Mg Capsule PO 100 mg Q12H PRN Administration Constipation Enoxaparin Sodium 40 mg 07/17/21 09:00 07/23/21 08:25 Enoxaparin 40 Mg/0.4 Ml Syringe SUB-Q 40 mg DAILY JAY Administration Hydralazine HCl 25 mg 07/19/21 12:56 07/22/21 23:55 Hydralazine Hcl 20 Mg/Ml Vial IV PUSH 25 mg Q8H PRN Administration Blood Pressure - High Hydralazine HCl 50 mg 07/23/21 06:00 07/23/21 05:53 Hydralazine Hcl 25 Mg Tablet PO 50 mg Q8HR JAY Administration Hydrochlorothiazide 25 mg 07/17/21 09:00 07/23/21 08:25 Hydrochlorothiazi
--- NOTE | 2021-07-23 11:27 | PM.IMPN ---
Progress Note: A&P Assessment and Plan (1) Malignant hypertension: Code(s): I10 - Essential (primary) hypertension Status: Chronic Assessment and Plan: Going to hold his lisinopril. Continue with amlodipine and clonidine. P.r.n. hydralazine. May also consider a beta-cady. 07/17/2021 Interval history: Patient with extremely elevated blood pressure upon arrival patient systolic blood pressure was over 200 patient states he had been taking lisinopril and recently patient was seen and [facility] started on amlodipine however patient did not start the medication, and does complain frontal had but denies any chest pain, patient tropes are elevated most likely demand ischemia due to extremely elevated blood pressure patient will be seen by round corner cutter operator and further recommendation to follow, and is seen by Nephrology and added Coreg, metoprolol, clonidine and hydrochlorothiazide, will continue to monitor and further recommendation to follow. 07/18/2021 Interval history: Patient with extremely elevated blood pressure upon arrival patient systolic blood pressure was over 200 patient states he had been taking lisinopril and recently patient was seen and [facility] started on amlodipine however patient did not start the medication, and did complain frontal had but denies any chest pain, patient tropes were elevated most likely demand ischemia due to extremely elevated blood pressure patient was seen by round corner cutter operator and further recommendation to follow, and is seen by Nephrology and added Coreg, metoprolol, clonidine and hydrochlorothiazide, today patient VELAZQUEZ is better, will continue to monitor and further recommendation to follow. 07/19/2021 Interval history: Patient with extremely elevated blood pressure upon arrival patient systolic blood pressure was over 200 patient states he had been taking lisinopril and recently patient was seen and [facility] started on amlodipine however patient did not start the medication, and did complain frontal had but denies any chest pain, patient tropes were elevated most likely demand ischemia due to extremely elevated blood pressure patient was seen by round corner cutter operator and further recommendation to follow, and is seen by Nephrology and added Coreg, metoprolol, clonidine and hydrochlorothiazide, today discussed with Dr. Kilgore nephrology plan is to monitor patient blood patient is trending down however his heart rate is Jonas will continue to monitor, today patient VELAZQUEZ is better, will continue to monitor and further recommendation to follow. 07/20/2021 Interval history: Patient with extremely elevated blood pressure upon arrival patient systolic blood pressure was over 200 patient states he had been taking lisinopril and recently patient was seen and [facility] started on amlodipine however patient did not start the medication, and did complain frontal had but denies any chest pain, patient tropes were elevated most likely demand ischemia due to extremely elevated blood pressure patient was seen by round corner cutter operator and further recommendation to follow, and is seen by Nephrology and added Coreg, metoprolol, clonidine and hydrochlorothiazide, on 07/[address] Kilgore nephrology plan is to monitor patient blood pressure and it is trending down however his heart rate is Jonas especially in am metoprolol and Coreg are not stopped, will continue to monitor, today patient VELAZQUEZ is better, will continue to monitor and further recommendation to follow. 07/21/2021 Interval history: Patient with extremely elevated blood pressure upon arrival patient systolic blood pressure was over 200 patient states he had been taking lisinopril and recently patient was seen and [facility] started on amlodipine however patient did not start the medication, and did complain frontal had but denies any chest pain, patient tropes were elevated most likely demand ischemia due to
[2021-07-23 12:53] LABS: Vitamin D 25 Hydroxy 17.6 ng/mL
--- NOTE | 2021-07-23 16:09 | PC.NURSE ---
On 07/03/21, the student, Arabella Pham, provided care and complted [facility] documentation on this patient. I have reviewed the student's documentation and agree with the findings
[2021-07-23 21:14] LABS: Albumin 81 %; Creat 24 Hr 1.34 g/24 h (0.50-2.15); Measured Kappa Chains 1.47 mg/dL (<2.00); Measured Lambda Chains <1.00 mg/dL (<2.00); Pro/Creat Ratio 312 mg/g creat (<=114); Total Kappa Chains 16.17 mg/24 h
[2021-07-23 21:26] LABS: Amphetamine Screen Urine Negative (Negative); Barbiturate Screen Urine Negative (Negative); Benzodiazepines Screen Urine Negative (Negative); Cannabinoid Screen Urine Positive (Negative); Cocaine Screen Urine Negative (Negative); Methadone Screen Urine Negative (Negative); Opiate Screen Urine Negative (Negative); Phencyclidine Screen Urine Negative (Negative)
[2021-07-24] VITALS: PULSE 58
[2021-07-24 00:03] VITALS: BP 150/92; PULSE 58; RESP 18; TEMP 36.1; O2SAT 100
[2021-07-24 04:00] VITALS: PULSE 50
[2021-07-24] MEDS: hydrALAZINE HCL 25 MG TABLET 50 MG PO (05:58)
[2021-07-24 06:07] LABS: Basophils Percent Auto 0.5 % (0.2-1.2); Eosinophils Absolute Auto 0.2 K/mm3 (0-0.3); Eosinophils Percent Auto 3.1 % (0-4.4); Hematocrit 40.9 % (42.0-52.0); Hemoglobin 14.1 g/dL (14.0-18.0); Immature Granulocyte Absolute 0.02 K/mm3 (0.00-0.031); Immature Granulocyte Percent A 0.3 % (0-0.5); Lymphocytes Absolute Auto 1.31 K/mm3 (0.9-3.2); Lymphocytes Percent Auto 21.1 % (18.3-44.2); Mean Corpuscular HGB Conc 34.5 g/dl (32-36); Mean Corpuscular Hemoglobin 30.7 pg (26-34); Mean Corpuscular Volume 89.1 fl (80-100); Mean Platelet Volume 11.6 fl (7.4-10.4); Monocytes Absolute Auto 0.8 K/mm3 (0.1-0.6); Monocytes Percent Auto 12.4 % (2.6-8.5); Neutrophils Absolute Auto 3.9 K/mm3 (1.3-6.7); Neutrophils Percent Auto 62.6 % (45.5-73.1); Platelet Count Result 275 k/mm3 (150-375); Red Blood Count 4.59 M/mm3 (4.6-6.20); White Blood Count 6.2 K/mm3 (4.5-10.0)
[2021-07-24 06:30] LABS: Alanine Aminotransferase 14 U/L (4-50); Alkaline Phosphatase 81 U/L (38-126); Anion Gap 6 mmol/L (8-16); Aspartate Amino Transferase 26 U/L (17-59); Bilirubin,Total 0.6 mg/dL (0.2-1.3); Blood Urea Nitrogen 34 mg/dL (9-20); Calcium 8.9 mg/dL (8.4-10.2); Carbon Dioxide 27 mmol/L (22-30); Chloride 103 mmol/L (98-107); Estimated CRCL calculation 31 ml/min; Estimated Glomerular Filt Rate 41; Glucose 88 mg/dL (65-110); Magnesium 2.1 mg/dL (1.6-2.3); Potassium 4.5 mmol/L (3.4-5.0); Sodium 136 mmol/L (137-145)
[2021-07-24 08:00] VITALS: PULSE 66
--- NOTE | 2021-07-24 08:38 | PC.NURSE ---
Christi Jolley PROGRAM AIDE GROUP WORK notified of pt having 6 beat run of vatch. Pt asymptomatic
[2021-07-24] MEDS: amLODIPine BESYLATE 5 MG TABLET PO (09:36)
[2021-07-24] MEDS: ATORVASTATIN 20 MG TABLET PO (09:36)
[2021-07-24] MEDS: ASPIRIN 81 MG CHEWABLE TABLET PO (09:36)
[2021-07-24] MEDS: ENOXAPARIN 40 MG/0.4 ML SYRINGE SUB-Q (09:36)
[2021-07-24] MEDS: lisinopriL 10 MG TABLET PO (09:37)
[2021-07-24] MEDS: hydroCHLOROthiazide 25 MG TABLET PO (09:37)
[2021-07-24 09:41] VITALS: BP 166/89
--- NOTE | 2021-07-24 10:51 | PM.DS ---
DS: Admitting Diagnosis Discharge Date 07/24/2021 Admitting Diagnosis Hypertensive urgency DS: Discharge Diagnosis Discharge Diagnosis (1) Malignant hypertension: Code(s): I10 - Essential (primary) hypertension Status: Chronic Assessment and Plan: Patient presented with extremely elevated blood pressure upon arrival. He was recently at [facility] with headache and was noted to have the same. He however left against medical advise. He does have underlying chronic kidney disease stage 3 baseline creatinine around 1.7 - 1.8. He was started on antihypertensive notably amlodipine hydrochlorothiazide and lisinopril. He was also added on beta-cady for proximal supraventricular tachycardia that he had when he presented. However he had severe bradycardia down to 30-40 with beta-cady and hence all the back blockers as well as his clonidine was discontinued during the hospital stay. His/her intermittent for oxygen atrial tachycardias which are short lived during the hospital stay which resolved without any intervention. Beta-cady was not attempted to be added again due to concurrent bradycardia as stated the nighttime. This was discussed with Cardiology and was planned to be discharged on event monitor at the time of discharge and to follow-up with cardiology as an outpatient basis. His blood pressure overall improved with adjustment of his blood pressure medication during hospital stay. His goal blood pressure will be to get it below 130/80 mm Hg. At the time of discharge is around months 50s systolic over 90s. An his blood pressure medication needs to be adjusted as an outpatient basis. Workup in the hospital stay included renin level which was low aldosterone level is pending. Echocardiogram 07/17/2021 showed systolic function hyperdynamic more than 70% moderate to severe concentric left ventricular hypertrophy more prominent in the septum no LVOT obstruction, valvular function was not able to be assessed. Urine drug screen was positive for cannabinoids and no other illicit drugs positive No history of smoking or alcohol use Renal duplex was done which did not show any renal artery stenosis LDL was 89 He had elevated troponin and hence he was started on baby aspirin every day He has reported history of biopsy-proven sarcoidosis in the past. This should be followed up as an outpatient basis with regular surveillance. No current symptoms related to sarcoidosis reported by the patient. He will follow-up with pulp operator who is already established with at [place] (2) Chronic kidney disease: Code(s): N18.9 - Chronic kidney disease, unspecified Status: Chronic Assessment and Plan: Obtain records from [facility]. Consult Nephrology during the hospital stay. Renal ultrasound which was read as normal kidneys. No hydronephrosis. Creatinine ranging between 1.7-2 likely has chronic kidney disease stage 3 No prior values available to review BNP elevated at 2680 (3) Elevated troponin: Code(s): R77.8 - Other specified abnormalities of plasma proteins Status: Chronic Assessment and Plan: troponins elevated on admission mild 0.138-0.232. Could be related to the renal disease. Patient has no complaints of chest pain. Could also possibly be heart strain from uncontrolled hypertension. On a a aspirin 81 mg daily (4) Headache: Code(s): R51.9 - Headache, unspecified Status: Acute Assessment and Plan: CT head with old left cerebellar hemispheric infarct, chronic small-vessel ischemic changes of the cerebral white matter. Sclerosis at the frontal sinuses likely benign and chronic DS: Summary Hospital Course Hospital Course: See above Time Spent with Patient Time attestation: Total time spent providing and/or coordinating discharge services: 50 minutes Exam Narrative: Patient is comfortable, NAD HEENT: eyes are clear and none icteric LUNG
--- NOTE | 2021-07-24 11:05 | PM.PNCARD ---
Progress Note: A&P Assessment and Plan (1) Hypertensive urgency: Code(s): I16.0 - Hypertensive urgency Status: Acute Assessment and Plan: BP better overall but remains somewhat variable and suboptimally controlled - his antyhypertensives can be adjusted as an outpatient. Continue HCTZ Continue lisinopril Continue Amlodipine Continue Hydralazine Outpatient follow up in one month (2) Bradycardia: Code(s): R00.1 - Bradycardia, unspecified Status: Acute Assessment and Plan: No clear symptoms related to bradycardia. Avoid AV/SA jeremie agents. Will have 14 day improvement advisor placed to monitor for significant bradycardia or any tachyarrhythmias - had some brief episodes of SVT in the hospital. Asymptomatic. Order for outpatient improvement advisor placed. (3) Oqbee-qv-tevnhve kidney injury: Qualifiers: Acute renal failure type: with acute tubular necrosis Chronic kidney disease stage: stage 3 (moderate) Chronic kidney disease stage 3 subtype: unspecified whether 3a or 3b Qualified Code(s): N17.0 - Acute kidney failure with tubular necrosis; N18.30 - Chronic kidney disease, stage 3 unspecified Code(s): N17.9 - Acute kidney failure, unspecified; N18.9 - Chronic kidney disease, unspecified Status: Acute Assessment and Plan: Improving renal function. Followed by Nephrology. (4) Type 2 myocardial infarction: Code(s): I21.A1 - Myocardial infarction type 2 Status: Acute Assessment and Plan: Not secondary to acute coronary syndrome and/or plaque rupture. This is secondary to LV strain related to hypertensive urgency presentation and underlying acute on chronic kidney injury. This is not due to myocardial infarction. (5) Hypertensive heart disease: Qualifiers: Heart failure presence: without heart failure Qualified Code(s): I11.9 - Hypertensive heart disease without heart failure Code(s): I11.9 - Hypertensive heart disease without heart failure Status: Acute Assessment and Plan: As above. LVH in large part contribute to longstanding hypertension. Aggressive but appropriate medical therapy for BP control. Counseled on diet, importance of compliance with follow-up and recommendations. Patient verbalized understanding and agreed. (6) PSVT (paroxysmal supraventricular tachycardia): Code(s): I47.1 - Supraventricular tachycardia Status: Acute Assessment and Plan: Self-limited, asymptomatic SVT on telemetry. Subjective Date/time seen: 07/24/21 11:05 cardiology follow-up for hypertension Feels well today. No chest pain, shortness of breath, palpitations. He does not have any complaints at all today. Review of Systems Review of Systems: All systems reviewed & are unremarkable except as noted in HPI and below Constitutional: Constitutional: Reports as per HPI, Reports no additional constitutional complaints, Reports fatigue and Reports headache(s) Eyes: Eyes: Reports as per HPI and Reports no additional eye complaints ENT: Reports system reviewed and no additional complaints, except as documented, Reports as per HPI and Reports headache(s) Cardiovascular: Cardiovascular: Reports as per HPI, Reports no additional cardiovascular complaints, Denies chest pain, Denies lightheadedness, Denies palpitations, Reports dyspnea and Denies dyspnea on exertion Respiratory: Respiratory: Reports as per HPI, Reports no additional respiratory complaints, Reports dyspnea and Denies dyspnea on exertion Gastrointestinal: Gastrointestinal: Reports as per HPI and Reports no additional gastrointestinal complaints Genitourinary: Genitourinary: Reports no additional male genitourinary complaints and Reports as per HPI Musculoskeletal: Musculoskeletal: Reports no additional musculoskeletal complaints, Reports as per HPI and Denies abnormal gait Integumentary/Breasts: Skin/Breast: Reports system reviewed and no ad
[2021-07-26 12:45] LABS: Adrenocorticotropic Hormone 22 pg/mL (6-50)
[2021-07-26 15:27] LABS: Protein,total, 24 Hr Ur 418 mg/24h
[2021-07-27 00:15] LABS: Vitamin D 1,25 (OH)2 Total 27 pg/mL (18-72); Vitamin D2 1,25 (OH)2 <8 pg/mL; Vitamin D3 1,25 (OH)2 27 pg/mL
[2021-07-29 04:54] LABS: Creatinine, Random Urine 190 mg/dL (20-320); Metanephrine, Total Urine 549 mcg/g cr (149-603); Metanephrine, Urine 106 mcg/g cr (21-153); Normetanephrine, Urine 443 mcg/g cr (108-524)
[2021-08-01 20:16] LABS: Calculated Total (E+NE) 43 mcg/g cr (9-74); Creatinine, Urine 190 mg/dL (20-320); Dopamine, Urine 125 mcg/g cr (40-390); Norepinephrine, Urine 43 mcg/g cr (7-65)
== END 2021-07-24 11:43 | disposition home or self-care (01) | DRG 199 ==
LOC: ANHED 15:48 → ANHCPC 16:58 → ANH2MED 07-24 10:17 → ANHCPC 07-25 12:54
PROVIDERS: Internal Medicine Nephrology; Nurse Practitioner; Admitting Provider Family Medicine; Emergency Provider Emergency Medicine; Visit Provider Internal Medicine
DX: I16.0 Hypertensive urgency (principal); N17.0 Acute kidney failure with tubular necrosis; I21.A1 Myocardial infarction type 2; I13.10 Hypertensive heart and chronic kidney disease without heart failure, with stage 1 through stage 4 chronic kidney disease, or unspecified chronic kidney disease; N18.30 Chronic kidney disease, stage 3 unspecified; D63.1 Anemia in chronic kidney disease; I47.1 Supraventricular tachycardia; R77.8 Other specified abnormalities of plasma proteins; R51.9 Headache, unspecified; R00.1 Bradycardia, unspecified; Z20.822 Contact with and (suspected) exposure to COVID-19; Z79.899 Other long term (current) drug therapy; Z86.2 Personal history of diseases of the blood and blood-forming organs and certain disorders involving the immune mechanism; Z86.73 Personal history of transient ischemic attack (TIA), and cerebral infarction without residual deficits; Z87.891 Personal history of nicotine dependence
CPT/HCPCS: 36415; 70450; 71046; 76775; 80053; 80061; 80069; 80307; 81001; 82024; 82088; 82306; 82384; 82533; 82570; 82652; 83690; 83735; 83835; 83880; 83883; 84156; 84244; 84443; 84484; 85025; 85027; 85380; 85610; 85652; 85730; 86038; 86160; 86162; 86334; 86335; 93005; 93306; 93308; 93976; 96374; 96375; 96376; 99285; A9270; C8924; C9803; G0378; J0360; J1650; J2405; Q9957; U0003; U0005

== ENCOUNTER 2021-07-25 11:11 | Outpatient (CLI) | payer BC, SELFPAY ==
[2021-07-25 11:38] LABS: Anion Gap 5 mmol/L (8-16); Blood Urea Nitrogen 45 mg/dL (9-20); Calcium 8.8 mg/dL (8.4-10.2); Carbon Dioxide 32 mmol/L (22-30); Chloride 102 mmol/L (98-107); Estimated Glomerular Filt Rate 33; Glucose 87 mg/dL (65-110); Potassium 4.4 mmol/L (3.4-5.0); Sodium 139 mmol/L (137-145)
== END 2021-07-25 11:12 | disposition home or self-care (01) ==
LOC: ANHLAB 11:13
PROVIDERS: Visit Provider Internal Medicine
DX: N17.9 Acute kidney failure, unspecified (principal)
CPT/HCPCS: 36415; 80048

== ENCOUNTER 2022-09-27 18:36 | Emergency (ER) | payer BC, SELFPAY ==
--- NOTE | ~2022-09-27 | XR_ITS ---
EXAMINATION: XR wrist LT min 3V DATE: 09/27/2022 19:25 INDICATION: Fall onto left hand TECHNIQUE: Posteroanterior, ulnar deviation, oblique, and lateral views of the left wrist were obtain ed. COMPARISON: none FINDINGS: Bone alignment is normal. No fracture. Polyarticular osteoarthritis, moderate severity at the first m etacarpophalangeal and fifth proximal interphalangeal joints and mild at the distal radioulnar, trisc aphe, first carpometacarpal and at the remaining metacarpophalangeal joints. Soft tissues are unremar kable. IMPRESSION: 1. 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 No acute osseous abnorma lity. Reviewed, dictated and finalized at location A. IMPRESSION: 1. 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 No acute osseous abnormality.
[2022-09-27 18:41] VITALS: BP 167/93; PULSE 52; RESP 14; TEMP 36.6; O2SAT 100
--- NOTE | 2022-09-27 19:35 | ED.GENADULT ---
HPI - General Adult General Chief complaint: Extremity Injury, Upper Stated complaint: extremity injury Time Seen by Provider: 09/27/22 18:44 Source: patient Mode of arrival: ambulatory Limitations: no limitations History of Present Illness HPI narrative: This is a 62-year-old male presents to the ED with chief complaint of a left wrist injury that occurred 2 days ago. Was seen at another facility and told he has negative x-rays for any fracture but wanted to come here for second opinion. He reports pain all throughout the wrist. States that the initial injury he tripped on a parking block and fell onto his left side. Denies numbness, weakness, fevers, chills. Denies any further site of pain. Related Data Allergies Allergy/AdvReac Type Severity Reaction Status Date / Time No Known Allergies Allergy Verified 07/16/21 13:35 Review of Systems Review of Systems: CONSTITUTIONAL: Denies fever, chills, or sweats. SKIN: Denies rash or itching. MUSCULOSKELETAL: See HPI NEUROLOGIC: Denies headache, numbness, dizziness, or weakness. [facility] Past Medical History Medical History (Updated 09/27/22 @ 19:39 by Eric Rudolph PA-C) Chronic kidney disease Chronic kidney disease Elevated troponin Erythropoietin deficiency anemia History of CVA (cerebrovascular accident) As per head CT Malignant hypertension Surgical History Surgical History History of appendectomy History of tonsillectomy Family History Family History Mother CHF (congestive heart failure) Hypertension Sibling Diabetes mellitus Hypertension Father Hypertension Social History Social History Social History: The patient has a significant other. He had 5 children and 1 in a car accident. The patient is currently unemployed. He is a former smoker. He denies any alcohol but occasionally uses marijuana. He does not have a durable power commercial attorney for healthcare. Code status full code Smoking packs per day: 0.5 Smoking cigarettes per day: 10.0 Smoking status: Former smoker Tobacco type: cigarettes Smoking end date: 06/01/00 Alcohol intake: current Drinks per week: 8 Substance use: never Substance use type: marijuana Gender identity (if verbalized by the patient): Male Sexual Orientation (if Verbalized by the Patient): Straight or Heterosexual Spiritual care concerns: No Exam Narrative: GENERAL: Well-appearing, well-nourished, and in no acute distress. HEAD: Normocephalic, atraumatic. EXTREMITIES: LUE: No deformity present. No bruising. No effusion. Mild tenderness throughout the wrist joint. No anatomical snuffbox tenderness present RUE: Benign MSK exam is otherwise benign. Normal range of motion. No edema. SKIN: Warm, dry, no rash. NEURO: Alert and oriented x3. No focal deficits. PSYCH: Normal mood and affect. Course Vital Signs Vital signs: Vital Signs Temperature 97.9 F 09/27/22 18:41 Pulse Rate 52 L 09/27/22 18:41 Respiratory Rate 14 09/27/22 18:41 Blood Pressure 167/93 H 09/27/22 18:41 Pulse Oximetry 100 09/27/22 18:41 Oxygen Delivery Room Air 09/27/22 18:41 Temperature 97.9 F 09/27/22 18:41 Pulse Rate 52 L 09/27/22 18:41 Respiratory Rate 14 09/27/22 18:41 Blood Pressure 167/93 H 09/27/22 18:41 Pulse Oximetry 100 09/27/22 18:41 Oxygen Delivery Room Air 09/27/22 18:41 Medical Decision Making MDM Narrative Medical decision making narrative: This is a 62-year-old male who presents to the ED with chief complaint of left wrist pain following an injury 2 days ago. Vitals are stable. X-rays are negative. Exam consistent with contusion versus strain of the wrist. There was some arthritis noted on the x-ray which may be contributing to his symptoms today. Meloxicam prescription
== END 2022-09-27 20:39 | disposition home or self-care (01) ==
PROVIDERS: Emergency Provider Physician Assistant; PCP Internal Medicine Gastroenterology
DX: S63.502A Unspecified sprain of left wrist, initial encounter (principal); I12.9 Hypertensive chronic kidney disease with stage 1 through stage 4 chronic kidney disease, or unspecified chronic kidney disease; N18.9 Chronic kidney disease, unspecified; D63.1 Anemia in chronic kidney disease; Z87.891 Personal history of nicotine dependence; M19.042 Primary osteoarthritis, left hand; M18.9 Osteoarthritis of first carpometacarpal joint, unspecified; M19.032 Primary osteoarthritis, left wrist
CPT/HCPCS: 73110; 99283

== ENCOUNTER 2022-12-09 23:01 | Emergency (ER) | payer BC, SELFPAY ==
--- NOTE | ~2022-12-09 | CT_ITS ---
EXAMINATION: CT abdomen pelvis wo con DATE: 12/10/2022 02:17 INDICATION: Right flank pain. TECHNIQUE: Computed tomography (CT) of the abdomen and pelvis was performed without intravenous contr ast. Automated exposure control and iterative reconstruction technique were employed. The dose-length product was 195.09 mGy-cm. COMPARISON: None. FINDINGS: The visualized portions of the lung bases demonstrate mild atelectasis. There are reticular opacities in right lower lobe, likely chronic lung disease. There is a calcified pleural plaque on t he right. The heart size is normal. No pericardial effusion. The liver and spleen are normal. The gal lbladder is small and may be contracted or a gallbladder remnant if there has been prior gallbladder surgery. The pancreas, adrenal glands, and kidneys are normal. There is no urolithiasis. There is an umbilical hernia containing fat. The prostate is mildly enlarged. There is diverticulosis of the colo n without evidence of diverticulitis. There are no dilated loops of bowel. The appendix is not visual ized. There is mild aortic atherosclerosis. There are no pathologically enlarged lymph nodes. There i s no free intraperitoneal fluid. There is mild lumbar spondylosis. IMPRESSION: 1. Umbilical hernia containing fat. 2. No urolithiasis. Reviewed, dictated and finalized at location E.
[2022-12-09 23:15] LABS: Basophils Percent Auto 0.2 % (0.2-1.2); Eosinophils Absolute Auto 0.1 K/mm3 (0-0.3); Eosinophils Percent Auto 0.7 % (0-4.4); Hematocrit 31.9 % (42.0-52.0); Hemoglobin 10.5 g/dL (14.0-18.0); Immature Granulocyte Absolute 0.03 K/mm3 (0.00-0.031); Immature Granulocyte Percent A 0.3 % (0-0.5); Lymphocytes Absolute Auto 0.91 K/mm3 (0.9-3.2); Lymphocytes Percent Auto 9.6 % (18.3-44.2); Mean Corpuscular HGB Conc 32.9 g/dl (32-36); Mean Corpuscular Hemoglobin 28.8 pg (26-34); Mean Corpuscular Volume 87.6 fl (80-100); Mean Platelet Volume 9.7 fl (7.4-10.4); Monocytes Absolute Auto 0.8 K/mm3 (0.1-0.6); Monocytes Percent Auto 8.2 % (2.6-8.5); Neutrophils Absolute Auto 7.7 K/mm3 (1.3-6.7); Platelet Count Result 353 k/mm3 (150-375); Red Blood Count 3.64 M/mm3 (4.6-6.20); Red Cell Distribution Width 13.9 % (11.5-14.5); White Blood Count 9.5 K/mm3 (4.5-10.0)
[2022-12-09 23:26] LABS: Alanine Aminotransferase 17 U/L (6-50); Albumin Level 3.8 g/dL (3.5-5.1); Alkaline Phosphatase 60 U/L (38-126); Anion Gap 3 mmol/L (8-16); Aspartate Amino Transferase 26 U/L (17-59); Bilirubin,Total 0.5 mg/dL (0.2-1.3); Blood Urea Nitrogen 33 mg/dL (9-20); Calcium 9.2 mg/dL (8.4-10.2); Carbon Dioxide 30 mmol/L (22-30); Chloride 102 mmol/L (98-107); Estimated CRCL calculation 31 ml/min; Estimated Glomerular Filt Rate 41; Glucose 97 mg/dL (65-110); Potassium 5.2 mmol/L (3.4-5.0); Sodium 135 mmol/L (137-145)
[2022-12-10] VITALS (9 sets, daily range): BP systolic 130–145; BP diastolic 72–89; PULSE 55–67; RESP 14–22; O2SAT 96–100
[2022-12-10] MEDS: methocarbamoL 750 MG TABLET 1500 MG PO (02:34)
[2022-12-10] MEDS: ACETAMINOPHEN 500 MG TABLET 1000 MG PO (02:35)
[2022-12-10] MEDS: oxyCODONE HCL (*CRX) 5 MG TAB IR PO (02:35)
[2022-12-10 02:46] LABS: Appearance Urine Clear (Clear); Bacteria Urine None Seen /hpf; Bilirubin Urine Negative (Negative); Blood Urine Trace (Negative); Color Urine Yellow (Yellow); Glucose Urine UA Negative (Negative); Ketones Urine Negative (Negative); Leukocyte Esterase Ur Negative LEU/UL (Negative); Nitrate Urine Negative (Negative); Non Pathogenic Casts 0-2; Protein Urine 1+ mg/dL (Negative); RBC Urine 0-2 /hpf (0-2); Specific Grav Ur 1.012 (1.001-1.035); Squamous Epithelial Cell Urine None seen /hpf (Few); Urobilinogen Urine 0.2 mg/dL (<2.0); WBC Urine 0-5 /hpf
[2022-12-10 02:53] LABS: Add Urine Microscopic? YES
--- NOTE | 2022-12-10 03:00 | ED.GENADULT ---
HPI - General Adult General Chief complaint: Urogenital-Male Stated complaint: kidney Time Seen by Provider: 12/10/22 01:18 History of Present Illness HPI narrative: This is a 62-year-old male with multiple medical comorbidities presenting with a chief complaint of my kidneys hurt after further questioning it appears that the patient is actually having lower right back pain that is radiating down his leg. He says it has been going on for several days and is a sharp spasming pain across his lower back. Patient says it is difficult to walk due to the pain. He was give Tylenol for pain. denies cancer, IV drug use, fevers, trauma bowel incontinence or urinary retention. Related Data Allergies Allergy/AdvReac Type Severity Reaction Status Date / Time No Known Allergies Allergy Verified 12/09/22 23:02 [facility] Past Medical History Medical History Chronic kidney disease Chronic kidney disease Elevated troponin Erythropoietin deficiency anemia History of CVA (cerebrovascular accident) As per head CT Malignant hypertension Surgical History Surgical History History of appendectomy History of tonsillectomy Family History Family History Mother CHF (congestive heart failure) Hypertension Sibling Diabetes mellitus Hypertension Father Hypertension Social History Social History Social History: The patient has a significant other. He had 5 children and 1 in a car accident. The patient is currently unemployed. He is a former smoker. He denies any alcohol but occasionally uses marijuana. He does not have a durable power deputy county attorney for healthcare. Code status full code Smoking packs per day: 0.5 Smoking cigarettes per day: 10.0 Smoking status: Former smoker Tobacco type: cigarettes Smoking end date: 06/01/00 Alcohol intake: current Drinks per week: 8 Substance use: never Substance use type: marijuana Gender identity (if verbalized by the patient): Male Sexual Orientation (if Verbalized by the Patient): Straight or Heterosexual Spiritual care concerns: No Exam Narrative: APPEARANCE: No apparent distress. Head: atraumatic. EYES: EOMI, NOSE: Atraumatic Back: Tenderness to palpation over the right paralumbar muscles. RESPIRATORY: No increased rate of breathing CARDIOVASCULAR: RRR, Pulses are +2 in lower extremity ABDOMINAL: Non-distended MUSCULOSKELETAl: No obvious deformities, Straight leg is positive bilaterally. NEURO: Alert. Moving 4/4 extremities SKIN:: Warm, dry. Normal color PSYCHIATRIC: Normal affect Course Vital Signs Vital signs: Vital Signs Pulse Rate 58 L 12/10/22 02:37 Respiratory Rate 14 12/10/22 02:37 Blood Pressure 137/72 12/10/22 02:37 Pulse Oximetry 96 12/10/22 02:37 Pulse Rate 58 L 12/10/22 02:37 Respiratory Rate 14 12/10/22 02:37 Blood Pressure 137/72 12/10/22 02:37 Pulse Oximetry 96 12/10/22 02:37 Medical Decision Making MDM Narrative Medical decision making narrative: -Presentation: 62-year-old male presenting with a chief complaint of kidney pain. On my exam it appears to be lower back pain although his presentation is not clear cut and the patient does not describe his symptoms consistently or clearly. Will get lab work and a CT abdomen pelvis to evaluate for kidney stones, AAA or other intra-abdominal pathology. He will be treated symptomatically for sciatica. -DDX includes but is not limited to: Sciatica, lumbago, kidney stone, AAA -Co-morbidities complicating care: chronic kidney disease, hypertension, diabetes -Social determinants of health: previous retired [employer] and lives alone -External Chart Review: review of admission notes from July of 2021 for hypertension, ac
[2022-12-10] MEDS: ONDANSETRON HCL ODT 4 MG TABLET PO (05:05)
== END 2022-12-10 05:05 | disposition home or self-care (01) ==
PROVIDERS: Emergency Provider Emergency Medicine; PCP Internal Medicine Gastroenterology
DX: M54.50 Low back pain, unspecified (principal); I12.9 Hypertensive chronic kidney disease with stage 1 through stage 4 chronic kidney disease, or unspecified chronic kidney disease; N18.9 Chronic kidney disease, unspecified
CPT/HCPCS: 36415; 74176; 80053; 81001; 85025; 99284; A9270

== ENCOUNTER 2025-05-08 23:06 | Emergency (ER) | payer MEDICARE, MEDICAID, SELFPAY ==
--- NOTE | ~2025-05-08 | XR_ITS ---
EXAMINATION: XR knee RT 3V DATE: 05/09/2025 02:45 INDICATION: Injury TECHNIQUE: Right knee x-rays were obtained. COMPARISON: None. IMPRESSION: 1. No displaced fracture dislocation or aggressive bone lesion. 2. Mild to moderate degenerative changes, and mild osteopenic changes; suprapatellar effusion may be present. 3. No radiopaque foreign body seen. Reviewed, dictated and finalized at location A. 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 No displaced fracture dislocation or aggressive bone lesion. 2. Mild to moderate degenerative changes, and mild osteopenic changes; suprapat ellar effusion may be present. 3. No radiopaque foreign body seen.
--- NOTE | ~2025-05-08 | XR_ITS ---
Examination: XR chest 2V Clinical History: SOB Comparison: 07/23/2021 Technique: PA and Lateral Findings: Cardiomediastinal silhouette normal size and configuration. Chronic interstitial changes and/or scarring. A few calcified granulomata. Lungs otherwise clear. No acute bony abnormality. IMPRESSION: 1. No acute cardiopulmonary findings. Reviewed, dictated and finalized at location R. O SURVEY WORKER
[2025-05-09 01:51] VITALS: PULSE 66; RESP 20; TEMP 36.6; O2SAT 100
[2025-05-09 02:16] VITALS: BP 172/83; PULSE 67; RESP 18; O2SAT 100
--- OUTSIDE RECORDS SUMMARY | 2025-05-09 02:16 | XMS_ITS | Clinical Summary ---
Author Organization [facility] [place] [address] Address [address] [place] [address] Care Team Providers Care Office Manager Executive Assistant Name Role Phone Homa Kate NP Primary Care Provider Allergies No known active allergies Medications amLODIPine (NORVASC) 5 mg tablet Take 5 mg by mouth daily 07/24/2021 Active atorvastatin (LIPITOR) 20 mg tablet Take 20 mg by mouth nightly at bedtime. 07/24/2021 Active hydrALAZINE (APRESOLINE) 25 mg tablet Take 50 mg by mouth every 8 (eight) hours 07/24/2021 Active lisinopriL (PRINIVIL,ZESTR IL) 10 mg tablet Take 10 mg by mouth daily 07/24/2021 Active aspirin 81 mg chewable tablet CHEW AND SWALLOW 1 TABLET BY MOUTH DAILY AT 8 AM 07/24/2021 Active Active Problems Problem Noted Date Diagnosed Date Syncope and collapse 08/14/2021 Essential hypertension 08/14/2021 Bradycardia 08/14/2021 Surgical History Surgery Date Site/Laterality Comments TONSILLECTOMY APPENDECTOMY Medical History Medical History Date Comments Malignant hypertension Chronic kidney disease Headache Family History Medical History Relation Name Comments Heart attack Father Heart disease Mother Relation Name Status Comments Father Alive Mother (Age 56) Social History Tobacco Use Types Packs/Day Years Used Date Smoking Tobacco: Former Cigarettes Personal Safety Answer Date Recorded Getting School Help Needed Not on file 08/15 Sex and Gender Information Value Date Recorded Sex Assigned at Not on file 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 Gender Identity Not on file Sexual Orientation Not on file Last Filed Vital Signs Vital Sign Reading Time Taken Comments Blood Pressure 140/80 08/14/2021 9:40 AM CDT Pulse 51 08/14/2021 9:40 AM CDT Temperature - - Respiratory Rate - - Oxygen Saturation 99% 08/14/2021 9:40 AM CDT Inhaled Oxygen Concentration - - Weight 69.8 kg (153 lb 14.4 oz) 08/14/2021 9:40 AM CDT Height 167.6 cm (5' 6) 08/14/2021 9:40 AM CDT Body Mass Index 24.84 08/14/2021 9:40 AM CDT Plan of Treatment Not on file Insurance PLAN Care Teams Office Manager Executive Assistant Relationship Specialty Start Date End Date Homa Kate NP PCP - General Family Medicine 07/16/21
--- NOTE | 2025-05-09 02:18 | ED.GENADULT ---
HPI - General Adult General Chief complaint: Fall Stated complaint: multiple complaints Time Seen by Provider: 05/09/25 01:58 History of Present Illness HPI narrative: 64-year-old male presenting to the emergency department for evaluation for right knee pain. Patient states he jumped off a dumpster few days ago and injured his right knee. Patient states he is unsure exactly how he injured the knee but has been having pain since. Patient denies striking his head denies loss consciousness. Patient states he has also had some chest congestion over the last few days and has had some intermittent sinus headache. Patient has been taking Tylenol for pain control and states this has been helping. Related Data Allergies Allergy/AdvReac Type Severity Reaction Status Date / Time No Known Allergies Allergy Verified 05/08/25 23:07 Review of Systems Review of Systems: All systems reviewed & are unremarkable except as noted in HPI and below PMFSH Past Medical History Medical History Chronic kidney disease Chronic kidney disease Elevated troponin Erythropoietin deficiency anemia History of CVA (cerebrovascular accident) As per head CT Malignant hypertension Surgical History Surgical History History of appendectomy History of tonsillectomy Family History Family History Mother CHF (congestive heart failure) Hypertension Sibling Diabetes mellitus Hypertension Father Hypertension Social History Social History Social History: The patient has a significant other. He had 5 children and 1 in a car accident. The patient is currently unemployed. He is a former smoker. He denies any alcohol but occasionally uses marijuana. He does not have a durable power associate property manager for healthcare. Code status full code Smoking packs per day: 0.5 Smoking cigarettes per day: 10.0 Smoking status: Former smoker Tobacco type: cigarettes Smoking end date: 06/01/00 Alcohol intake: current Drinks per week: 8 Substance use: never Substance use type: marijuana Gender identity (if verbalized by the patient): Male Sexual Orientation (if Verbalized by the Patient): Straight or Heterosexual Spiritual care concerns: No Exam Narrative: APPEARANCE: Well appearing, no pain, no distress, well-nourished. HEAD: normocephalic, atraumatic. EYES: PERRLA/EOMI, conjunctivae clear. NOSE: Normal no drainage EARS:TMS clear with good light reflex. THROAT: Pharynx clear, no exudate. NECK: Supple. No adenopathy, no masses. RESPIRATORY: Airway patent, respirations nonlabored. Clear to auscultation bilaterally, no rales, rhonchi, wheezing. CARDIOVASCULAR: Regular rate and rhythm without murmurs rubs or gallops. ABDOMINAL: Soft, nontender, nondistended, normal bowel sounds MUSCULOSKELETAL: Right knee tenderness to palpation with no deformity NEURO: Alert. Cranial nerves II through XII intact. Good gait. Good coordination SKIN: Warm, dry. Normal Color Course Vital Signs Vital signs: Vital Signs Temperature 97.9 F 05/09/25 01:51 Pulse Rate 66 05/09/25 01:51 Respiratory Rate 20 05/09/25 01:51 Pulse Oximetry 100 05/09/25 01:51 Temperature 98.4 F 05/09/25 03:30 Pulse Rate 90 05/09/25 03:30 Respiratory Rate 21 H 05/09/25 03:30 Blood Pressure 168/88 H 05/09/25 03:30 Pulse Oximetry 100 05/09/25 03:30 MDM MDM Narrative Medical decision making narrative: 64-year-old male present to the emergency department for evaluation for right knee pain and chest congestion. X-ray was negative for acute fracture dislocation. Patient was negative for influenza RSV and for COVID. Chest x-ray shows no acute cardiopulmonary abnormality. Patient was updated results of the workup. Patient was comfortable with plan for discharge to home. Patient is being advised to take Tylenol and ibuprofen for fever or pain control. Patient is being provided a muscle relaxant for the right knee pain. Differential Diagnosis Differential Diagnosis: Knee fracture, knee contusion, pneumonia, RSV, COVID, influenza Lab Data Labs: Lab Results 05/09/25 Range/Units 02:22 Influenza A (RT-PCR) Negative (Negative) Influenza B (RT-PCR) Negative (Negative) RSV (RT-PCR) Negative (Negative) SARS-CoV-2 RNA (RT-PCR) Negative (Negative) Imaging Data My impression: Chest x-ray: No acute cardiopulmonary abnormality. Knee x-ray: No acute fracture dislocation Discharge Plan Discharge Clinical Impression: Acute knee pain, Chest congestion Clinical Impression: (Ruled Out): PSVT (paroxysmal supraventricular tachycardia) Patient Disposition: Home Condition: Stable Instructions: Antibiotic Form Additional Instructions: Tylenol and ibuprofen for pain control. Flexeril for muscle spasm. Have close follow-up with your primary care physician. If you have any worsening symptoms then please call or return to the emergency department. Patient Language: Lithuanian Prescriptions: New cyclobenzaprine 10 mg tablet 10 mg PO BID PRN (Reason: muscle spasm) Qty: 14 0RF No Action amlodipine [Norvasc] 5 mg Tablet 5 mg PO DAILY Qty: 30 0RF atorvastatin 20 mg Tablet 20 mg PO HS Qty: 30 0RF hydralazine 25 mg Tablet 50 mg PO Q8HR Qty: 90 0RF lisinopril 10 mg Tablet 10 mg PO DAILY Qty: 30 0RF aspirin [Children's Aspirin] 81 mg Tablet,Chewable 81 mg PO DAILY@0800 Qty: 30 0RF hydrochlorothiazide 25 mg Tablet 25 mg PO BID Qty: 60 0RF meloxicam 7.5 mg tablet 7.5 mg PO DAILY Qty: 30 0RF acetaminophen 500 mg tablet 1,000 mg PO TID PRN (Reason: lsisy) 7 Days Qty: 42 0RF methocarbamol 750 mg tablet 1,500 mg PO TID Qty: 35 0RF Follow-up/Referrals: PHYSICIAN,DIRECTOR OF PROVIDER RELATIONS [Primary Care Provider, Internal Medicine]
[2025-05-09] MEDS: KETOROLAC 30 MG/ML VIAL (*BKC) IM (02:24)
[2025-05-09] MEDS: CYCLOBENZAPRINE HCL 10 MG TABLET PO (02:24)
[2025-05-09 03:08] LABS: Influenza A QL RT-PCR Negative (Negative); Influenza B QL RT-PCR Negative (Negative); RSV RNA, RT-PCR Negative (Negative); SARS-CoV-2 RNA PCR Negative (Negative)
[2025-05-09 03:30] VITALS: BP 168/88; PULSE 90; RESP 21; TEMP 36.9; O2SAT 100
== END 2025-05-09 03:37 | disposition home or self-care (01) ==
PROVIDERS: Emergency Provider Emergency Medicine
DX: I47.10 Supraventricular tachycardia, unspecified (principal); R09.89 Other specified symptoms and signs involving the circulatory and respiratory systems; M25.561 Pain in right knee; I12.9 Hypertensive chronic kidney disease with stage 1 through stage 4 chronic kidney disease, or unspecified chronic kidney disease; N18.9 Chronic kidney disease, unspecified; D63.1 Anemia in chronic kidney disease; Z86.73 Personal history of transient ischemic attack (TIA), and cerebral infarction without residual deficits
CPT/HCPCS: 71046; 73562; 87637; 96372; 99284; A9270; J1885